=== PATIENT | male | born 1935 | race Caucasian/White ===

== ENCOUNTER 2017-02-20 10:08 | Outpatient (CLI) | payer MEDICARE, OTHER | END 2017-02-20 10:09 | disposition critical access hospital (66) | LOC: EMS 10:08 | PROVIDERS: ATTEND Surgery | DX: M79.601 Pain in right arm (principal); W31.89XA Contact with other specified machinery, initial encounter; Y92.007 Garden or yard of unspecified non-institutional (private) residence as the place of occurrence of the external cause | CPT/HCPCS: A0425; A0429 ==

== ENCOUNTER 2017-02-20 10:45 | Emergency (ER) | payer MEDICARE, OTHER ==
[2017-02-20] MEDS ORDERED: DEXAMETHASONE 10 MG/ML VIAL PO STA (13:30)
[2017-02-20] MEDS ORDERED: DEXAMETHASONE 10 MG/ML VIAL ONE (13:33)
[2017-02-20] MEDS ORDERED: CHERRY SYRUP 10 ML UDC PO ONE (13:33)
== END 2017-02-20 13:53 | disposition home or self-care (01) ==
DX: S47.1XXA Crushing injury of right shoulder and upper arm, initial encounter (principal); R20.2 Paresthesia of skin; W23.0XXA Caught, crushed, jammed, or pinched between moving objects, initial encounter; Y93.H9 Activity, other involving exterior property and land maintenance, building and construction; Y92.007 Garden or yard of unspecified non-institutional (private) residence as the place of occurrence of the external cause; I48.91 Unspecified atrial fibrillation; Z79.82 Long term (current) use of aspirin; Z79.899 Other long term (current) drug therapy
CPT/HCPCS: 73060; 99283; 99284; A9270

== ENCOUNTER 2021-01-05 02:07 | Day surgery (SDC) | payer MEDICARE, OTHER ==
--- NOTE | 2021-01-05 02:25 | ED Physician Documentation ---
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 patient was in bed asleep when he turned and fell out of bed, striking his draw on his bedside table. He immediately had severe jaw pain N perceived deformity of his teeth (sudden severe misalignment). He thinks one or more teeth might be missing although he did not see any loose teeth Review of Systems Eyes: reports: Reviewed and negative Ears: denies: Loss of hearing, Ear pain, Drainage/discharge Nose: denies: Epistaxis Throat: reports: Dental pain / toothache Neurologic: reports: Difficulty speaking, Head injury. denies: Focal weakness, Numbness, Confused, Altered mental status, Headache, LOC PD PAST MEDICAL HISTORY - Past Medical History Past Medical History: Yes Cardiovascular: Atrial fibrillation - Past Surgical History Ortho: Knee replacement - Present Medications Home Medications: Ambulatory Orders Medication Instructions Recorded Confirmed Escitalopram Oxalate [Lexapro] 5 mg PO DAILY 01/05/21 01/05/21 Metoprolol Tartrate [Lopressor] 50 mg PO DAILY 01/05/21 01/05/21 Tamsulosin [Flomax] 0.4 mg PO DAILY 01/05/21 01/05/21 - Allergies Allergies/Adverse Reactions: Allergies Allergy/AdvReac Type Severity Reaction Status Date / Time No Known Drug Allergies Allergy Verified 02/20/17 10:56 - Social History Does the pt smoke?: No Smoking Status: Never smoker Does the pt drink ETOH?: Yes Does the pt have substance abuse?: No - Immunizations Immunizations are current?: Yes PD ED PE NORMAL - Vitals Vital signs reviewed: Yes - General General: Alert and oriented X 3, No acute distress, Well developed/nourished - HEENT HEENT: PERRL, EOMI - Neck Neck: Supple, no meningeal sign, No bony TTP - Cardiac Cardiac: RRR (occasional extra beats but underlying regular rhythm ) - Respiratory Respiratory: No respiratory distress, Clear bilaterally - Abdomen Abdomen: Soft, Non tender PD ED PE EXPANDED - HEENT HEENT: Other (swelling of mandible (visible on gross inspection, R body > left). palpable crepitus. obvious bony step-off noted intraorally between left 1st and 2nd mandibular premolars) Results - Vitals Vitals: Vital Signs - 24 hr 01/05/21 01/05/21 01/05/21 02:11 02:19 04:46 Temperature 36.1 C L 36.1 C L 36.3 C L Heart Rate 61 61 59 L Heart Rate [ Radial] Respiratory 22 22 12 Rate Blood Pressure 181/80 H 181/80 H 145/73 H Blood Pressure [Right Brachial artery] O2 Saturation 97 97 94 01/05/21 01/05/21 01/05/21 06:00 06:40 07:52 Temperature 36.6 C 36.4 C L Heart Rate Heart Rate [ 62 67 Radial] Respiratory 20 18 Rate Blood Pressure Blood Pressure 173/75 H 158/63 H 170/71 H [Right Brachial artery] O2 Saturation 97 95 01/05/21 01/05/21 09:06 11:40 Temperature 36.4 C L Heart Rate Heart Rate [ 66 Radial] Respiratory 18 Rate Blood Pressure 167/71 H Blood Pressure 133/70 H [Right Brachial artery] O2 Saturation 93 Oxygen O2 Source Room air - Labs Labs: Laboratory Tests 01/05/21 01/05/21 01/05/21 03:40 03:40 03:40 WBC 7.3 RBC 4.57 L Hgb 14.4 Hct 42.0 MCV 91.9 MCH 31.5 H MCHC 34.3 RDW 13.2 Plt Count 101 L MPV 10.0 Neut # (Auto) 6.1 Lymph # (Auto) 0.8 L Kimble # (Auto) 0.3 Eos # (Auto) 0.0 Baso # (Auto) 0.0 Absolute Nucleated RBC 0.00 Nucleated RBC % 0.0 PT 12.3 INR 1.1 Sodium 134 L Potassium 3.9 Chloride 103 Carbon Dioxide 23 Anion Gap 8.0 BUN 23 H Creatinine 0.7 Estimated GFR (MDRD) 107 Glucose 228 H Calcium 8.6 Troponin I High Sens Nasal Adenovirus (PCR) Nasal B. parapertussis DNA (PCR) Nasal Coronavir 229E PCR Nasal Coronavir HKU1 PCR Nasal Coronavir NL63 PCR Nasal Coronavir OC43 PCR Nasal Enterovir/Rhinovir PCR Nasal Influenza B PCR Nasal Influenza A PCR Nasal Parainfluen 1 PCR Nasal Parainfluen 2 PCR Nasal Parainfluen 3 PCR Nasal Parainfluen 4 PCR Nasal RSV (PCR) Nasal B.pertussis DNA PCR Nasal C.pneumoniae (PCR) [place] Human Metapneumo PCR Nasal M.pneumoniae (PCR) Nasal SARS-CoV-2 (PCR) 01/05/21 01/05/21 05:36 07:26 WBC RBC Hgb Hct MCV MCH MCHC RDW Plt Count MPV Neut # (Auto) Lymph # (Auto) Kimble # (Auto) Eos # (Auto) Baso # (Auto) Absolute Nucleated RBC Nucleated RBC % PT INR Sodium Potassium Chloride Carbon Dioxide Anion Gap BUN Creatinine Estimated GFR (MDRD) Glucose Calcium Troponin I High Sens 7.4 Nasal Adenovirus (PCR) NOT DETECTED Nasal B. parapertussis DNA (PCR) NOT DETECTED Nasal Coronavir 229E PCR NOT DETECTED Nasal Coronavir HKU1 PCR NOT DETECTED Nasal Coronavir NL63 PCR NOT DETECTED Nasal Coronavir OC43 PCR NOT DETECTED Nasal Enterovir/Rhinovir PCR NOT DETECTED Nasal Influenza B PCR NOT DETECTED Nasal Influenza A PCR NOT DETECTED Nasal Parainfluen 1 PCR NOT DETECTED Nasal Parainfluen 2 PCR NOT DETECTED Nasal Parainfluen 3 PCR NOT DETECTED Nasal Parainfluen 4 PCR NOT DETECTED Nasal RSV (PCR) NOT DETECTED Nasal B.pertussis DNA PCR NOT DETECTED Nasal C.pneumoniae (PCR) NOT DETECTED Ju[place]ino Human Metapneumo PCR NOT DETECTED Nasal M.pneumoniae (PCR) NOT DETECTED Nasal SARS-CoV-2 (PCR) NOT DETECTED - Rads (name of study) CT maxillofacial Radiology: Prelim report reviewed, See rad report PD MEDICAL DECISION MAKING - ED course Complexity details: reviewed results, re-evaluated patient, considered differential, d/w patient ED course: D/W Dr. Tera Quarles, he will come in to evaluate patient, asks for hospitalist consult. I D/W Dr. Greco, who requests clarification if Dr. Quarles wants hospitalist as consult or to admit. I asked ED CLERK GENERAL to recontact Dr. Quarles and have call transferred to Dr. Greco. Dr. Quarles evaluated patient in ED and will write admission orders for same day surgery Departure - Departure Disposition: ED Transfer to [facility] Clinical Impression: Mandible fracture Qualifiers: Encounter type: initial encounter Fracture type: open Mandible location: ramus Laterality: right Qualified Code(s): S02.641B - Fracture of ramus of right mandible, initial encounter for open fracture Condition: Stable Discharge Date/Time: 01/05/21 05:45
[2021-01-05] MEDS ORDERED: MORPHINE 2 MG/ML CARPUJECT IVP STA ×2 (02:39→03:40)
[2021-01-05] MEDS ORDERED: ONDANSETRON 4 MG/2 ML VIAL IVP STA (02:39)
[2021-01-05] MEDS ORDERED: ceFAZolin 1 GM in SODIUM CHLORIDE 0.9% MINIBAG 100 ML IV STA (03:40)
[2021-01-05] MEDS ORDERED: ceFAZolin 1 GM VIAL ONE (03:44)
[2021-01-05 03:47] LABS: BASOPHILS % (AUTO) 0.3 %; EOSINOPHILS % (AUTO) 0.4 %; HGB - HEMOGLOBIN 14.4 g/dL (14.0-18.0); LYMPHOCYTES # (AUTO) 0.8 10^3/uL (1.5-3.5); LYMPHOCYTES % (AUTO) 11.5 %; MEAN CORPUSCULAR HEMOGLOBIN 31.5 pg (27.0-31.0); MEAN CORPUSCULAR HGB CONC 34.3 g/dL (32.0-36.0); MEAN CORPUSCULAR VOLUME 91.9 fL (80.0-94.0); MONOCYTES # (AUTO) 0.3 10^3/uL (0.0-1.0); MONOCYTES % (AUTO) 4.1 %; NEUTROPHILS # (AUTO) 6.1 10^3/uL (1.5-6.6); NEUTROPHILS % (AUTO) 83.4 %; PLT - PLATELET COUNT 101 10^3/uL (130-450); RED BLOOD COUNT 4.57 10^6/uL (4.70-6.10); RED CELL DISTRIBUTION WIDTH 13.2 % (12.0-15.0); WHITE BLOOD COUNT 7.3 x10^3/uL (4.8-10.8)
[2021-01-05 03:55] LABS: CALCIUM 8.6 mg/dL (8.5-10.3); CREATININE 0.7 mg/dL (0.6-1.2); POTASSIUM 3.9 mmol/L (3.5-5.0)
[2021-01-05] MEDS ORDERED: oxyCODONE 10 MG/0.5 ML SYRINGE PO PRN (04:59)
--- NOTE | 2021-01-05 05:13 | HISTORY & PHYSICAL EXAMINATION ---
Chief Complaint - Chief Complaint Chief Complaint: Face pain History of Present Illness - Admitted From Admitted From:: ER - History Obtained From History obtained from: Patient - History of Present Illness HPI Comment/Other: At about 1 am this morning Mr. Power accidentally rolled out of bed and struck his face on the nightstand. He remembers the incident clearly. He immediately felt pain in his jaw and noticed a malocclusion. He did not have pain in his hands, head, eyes, chest, abdomen, or extremities after the incident. He was brought to the ER where a CT max/face demonstrated bilateral mandible fractures. OMFS was consulted for evaluation and management of these fractures. History - Past Medical History Cardiovascular: reports: Atrial fibrillation MRSA Hx?: No - Past Surgical History Ortho: reports: Knee replacement Meds/Allgy - Home Medications Home Medications: Ambulatory Orders Medication Instructions Recorded Confirmed Escitalopram Oxalate [Lexapro] 5 mg PO DAILY 01/05/21 01/05/21 Metoprolol Tartrate [Lopressor] 50 mg PO DAILY 01/05/21 01/05/21 Tamsulosin [Flomax] 0.4 mg PO DAILY 01/05/21 01/05/21 - Allergies Allergies/Adverse Reactions: Allergies Allergy/AdvReac Type Severity Reaction Status Date / Time No Known Drug Allergies Allergy Verified 02/20/17 10:56 Review of Systems - Constitutional Constitutional: denies: Fever, Weakness - Eyes Eyes: denies: Pain, Blurred vision, Spots in vision, Vision loss, Dipolpia - Ears, Nose & Throat Ears, Nose & Throat: reports: Other (Mouth pain, malocclusion). denies: Ear pain, Hearing loss, Nasal pain, Nasal discharge - Cardiovascular Cariovascular: reports: Irregular heart rate. denies: Chest pain, Edema, Syncope - Respiratory Respiratory: denies: Cough, Wheezing, Snoring - Gastrointestinal Gastrointestinal: denies: Abdominal pain, Diarrhea - Musculoskeletal Musculoskeletal: denies: Muscle pain, Back pain - Integumentary Integumentary: reports: Other (Denies any wounds elsewhere on his body) - Neurological Neurological: denies: Headache, Dizziness - Hematologic/Lymphatic Hematologic/Lymphatic: denies: Bleeding tendencies - All Other Systems All Other Systems: reports: Reviewed and negative Exam - Vital Signs Vital Signs: Vital Signs x48h Temp Pulse Resp BP Pulse Ox 01/05/21 04:46 36.3 C L 59 L 12 145/73 H 94 01/05/21 02:19 36.1 C L 61 22 181/80 H 97 01/05/21 02:11 36.1 C L 61 22 181/80 H 97 - Physical Exam General Appearance: positive: No acute distress, Alert (Sleeping comfortably before I woke him) Eyes Bilateral: positive: PERRL, EOMI ENT: positive: Other (Gross malocclusion. Mobility of B md fractures. No missing or chipped teeth visible. No debris in mouth. Marked ecchymosis intraoral. No hematoma or elevation of tongue. Airway symmetric and widely patent. Sleeping supine w/out stridor. Large step between teeth #20,21.) Neck: positive: Nml inspection Respiratory: positive: Chest non-tender, No respiratory distress Cardiovascular: positive: Regular rate & rhythm Peripheral Pulses: positive: 2+ Abdomen: positive: Non-tender, No distention Skin: positive: Color nml, Warm, Dry Extremities: positive: Non-tender, Full ROM Neurologic/Psychiatric: positive: Oriented x3, CN's nml (2-12) (With bilateral V3 anesthesia) Conclusion/Plan - Problem List (1) Mandible open fracture Qualifiers: Encounter type: initial encounter Mandible location: body Laterality: left Qualified Code(s): S02.602B - Fracture of unspecified part of body of left mandible, initial encounter for open fracture (2) Mandible fracture Conclusion/Plan: 85 yo M w/ the following maxillofacial injuries: 1. Displaced, open fracture of the right mandibular angle. 2. Displaced, open fracture of the L mandibular body, between teeth #20,21 Plan: ORIF of the bilateral mandible fractures in the [facility] this evening. Scheduling pending. - NPO - Unasyn 3g q6h - chlorhexidine mouthrinse BID - elevate HOB - allen hose and SCDs Qualifiers: Encounter type: initial encounter Fracture type: open Mandible location: ramus Laterality: right Qualified Code(s): S02.641B - Fracture of ramus of right mandible, initial encounter for open fracture (3) Atrial fibrillation Conclusion/Plan: The patient reports he has an irregular heart beat. He denies chest pain or syncope. IM is consulting for medical management. Appreciate IM assistance. - Lab Results Fish Bones: 01/05/21 03:40 01/05/21 03:40 - Diagnostic Imaging Results Diagnostic Imaging Results: positive: Other (Severely displaced, comminuted fracture of the R mandibular angle. Severely displaced fracture of the L m andibular body between teeth #20,21. No other facial fractures noted. There may be impacted tooth #32 in the L mandibular angle fracture.)
[2021-01-05] MEDS: AMPICILLIN/SULBACTAM 3 GM in SODIUM CHLORIDE 0.9% MINIBAG 100 ML IV SCH ×3 (05:56→18:07)
[2021-01-05] MEDS: D5.45NS W/20 MEQ KCL 1,000 ML IV SCH ×2 (05:57→22:04)
[2021-01-05 06:26] LABS: B. PARAPERTUSSIS- RESP PCR PAN NOT DETECTED; B. PERTUSSIS- RESP PCR PANEL NOT DETECTED; C. PNEUMONIAE- RESP PCR PANEL NOT DETECTED; CORONAVIRUS 229E-RESP PCR NOT DETECTED; CORONAVIRUS HKU1-RESP PCR NOT DETECTED; CORONAVIRUS NL63-RESP PCR NOT DETECTED; CORONAVIRUS OC43-RESP PCR NOT DETECTED; HUMAN METAPNEUMOVIRUS NOT DETECTED; INFLUENZA A- RESP PCR PANEL NOT DETECTED; INFLUENZA B - RESP PCR PANEL NOT DETECTED; M. PNEUMONIAE- RESP PCR PANEL NOT DETECTED; PARAINFLUENZA VIRUS 1 NOT DETECTED; PARAINFLUENZA VIRUS 2 NOT DETECTED; PARAINFLUENZA VIRUS 3 NOT DETECTED; PARAINFLUENZA VIRUS 4 NOT DETECTED; RHINOVIRUS/ENTEROVIRUS NOT DETECTED; RSV- RESP PCR PANEL NOT DETECTED; SARS-CoV-2 -RESP PCR PANEL NOT DETECTED
[2021-01-05] MEDS ORDERED: hydrALAZINE INJ 20 MG/ML VIAL IVP PRN ×2 (07:29→08:27)
[2021-01-05 08:05] LABS: INR 1.1 (0.8-1.2); PT - PROTHROMBIN TIME 12.3 secs (9.9-12.6)
[2021-01-05] MEDS: CHLORHEXIDINE GLUCONATE 15 ML UDC PO SCH ×2 (08:10→21:58)
[2021-01-05] MEDS: TAMSULOSIN 0.4 MG CAPSULE PO SCH (08:11)
[2021-01-05] MEDS: ESCITALOPRAM 10 MG TABLET PO SCH (08:11)
--- NOTE | 2021-01-05 08:59 | CT Report ---
PROCEDURE: MAXILLOFACIAL WO INDICATIONS: fall, mandible and dental injury TECHNIQUE: Noncontrast 1.5 mm thick axial images acquired from the mandible through the frontal sinuses, with co shahzad and sagittal reformatting. For radiation dose reduction, the following was used: automated ex posure control, adjustment of mA and/or kV according to patient size. COMPARISON: None. FINDINGS: The right mandibular body is fractured near the mandibular angle. This fracture is displaced nearly o ne full shaft width, to 1.1 cm. This fracture involves the mandibular nerve canal. The fracture also extends into the root of the right third molar and there appears to be fracture of the tissues [place] also. The left mandibular body is fractured with mild displacement and angulation. This fracture likely inv olves the mandibular nerve canal. There is also extension of the fracture plane into the root of the left mandibular canine. Soft tissue swelling adjacent to both fractures, more pronounced on the left where there is extension into the submandibular space. There is no additional facial fracture identified. Visualized upper cervical spine appears intact. Pa ranasal sinuses and mastoid air cells are clear. IMPRESSION: Bilateral mandibular fractures, with bilateral involvement of the mandibular nerve canals. No significant change from preliminary report. Reviewed by: George Cerna MD on 01/05/2021 8:57 AM PDT Approved by: George Cerna MD on 01/05/2021 8:57 AM PDT Station ID: [id number]
[2021-01-05] MEDS ORDERED: METOPROLOL TARTRATE 50 MG TABLET PO SCH (09:00)
--- NOTE | 2021-01-05 09:26 | CONSULTATION NOTE ---
Referring Provider Name of Referring Provider:: Dr. Quarles Consult Date: 01/05/21 Chief Complaint - Chief Complaint Chief Complaint: fall History of Present Illness - Admitted From Admitted From:: medical floor - History Obtained From Records Reviewed: [facility] History obtained from: Pt Exam Limitations: no - History of Present Illness HPI Comment/Other: This is a [id number] male with a past medical history significant for Heart murmur, hypertension, BPH, who was at medical floor for evaluation of his fall. pt report he accidentally rolled out of bed and struck his face on the nightstand. Clearly pt report he was not loss of Consciousness. he remember clearly what happened. Patient report he has a history heart murmur, as his two family member have heart murmur as well. 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 Patient denies chest pain, palpitation, shortness breathing, fever, chill, headache, eye pain and vision change. CT facial bones found pt had Bilaterally mandibular fractures, with bilaterally involvement of mandibular nerve canals. pt was admitted by surgeon and scheduled to have ORIF of the bilateral mandible fractures on later today or evening. Medical team was consulted for medical management. Pt clearly state he was DNR. History - Past Medical History Cardiovascular: reports: Atrial fibrillation MRSA Hx?: No - Past Surgical History Ortho: reports: Knee replacement Meds/Allgy - Home Medications Home Medications: Ambulatory Orders Medication Instructions Recorded Confirmed Escitalopram Oxalate [Lexapro] 5 mg PO DAILY 01/05/21 01/05/21 Metoprolol Tartrate [Lopressor] 50 mg PO DAILY 01/05/21 01/05/21 Tamsulosin [Flomax] 0.4 mg PO DAILY 01/05/21 01/05/21 - Allergies Allergies/Adverse Reactions: Allergies Allergy/AdvReac Type Severity Reaction Status Date / Time No Known Drug Allergies Allergy Verified 02/20/17 10:56 Review of Systems - Constitutional Constitutional: denies: Fatigue, Fever, Chills, Weakness, Poor appetite, Diaphoresis - Eyes Eyes: denies: Pain, Field loss, Vision loss, Dipolpia - Ears, Nose & Throat Ears, Nose & Throat: denies: Ear pain, Tinnitus, Vertigo, Nosebleeds, Bleeding gums - Cardiovascular Cariovascular: denies: Irregular heart rate, Palpitations, Chest pain, Edema, Lightheadedness, Syncope, Exertional dyspnea, Decr. exercise tolerance - Respiratory Respiratory: denies: Cough, Sputum production, Wheezing, Orthopnea, SOB at rest, SOB with exertion - Gastrointestinal Gastrointestinal: denies: Abdominal pain, Constipation, Diarrhea, Rectal bleeding, Black stools, Bloody stools, Nausea, Vomiting - Genitourinary Genitourinary: denies: Dysuria, Urgency, Incontinence - Musculoskeletal Musculoskeletal: denies: Muscle pain, Muscle aches, Limited range of motion - Integumentary Integumentary: denies: Rash, Lesions, Lumps - Neurological Neurological: denies: General weakness, Focal weakness, Headache, Dizziness, Numbness, Pre-existing deficit, Abnormal gait, Seizures, Incoordination, Slurred speech - Psychiatric Psychiatric: denies: Depression, Suicidal - Endocrine Endocrine: denies: Polyuria, Polydypsia - Hematologic/Lymphatic Hematologic/Lymphatic: denies: Anemia Exam - Vital Signs Vital Signs: Vital Signs x48h Temp Pulse Pulse Resp BP BP Pulse Ox 01/05/21 09:06 167/71 H 01/05/21 07:52 36.4 C L 67 18 170/71 H 95 01/05/21 06:40 158/63 H 01/05/21 06:00 36.6 C 62 20 173/75 H 97 01/05/21 04:46 36.3 C L 59 L 12 145/73 H 94 01/05/21 02:19 36.1 C L 61 22 181/80 H 97 01/05/21 02:11 36.1 C L 61 22 181/80 H 97 - Physical Exam General Appearance: positive: No acute distress, Alert. negative: Lethargic Eyes Bilateral: positive: Normal inspection, PERRL, No lid inflammation ENT: positive: No signs of dehydration. negative: Purulent nasal drainage, Dry mucous membranes Neck: positive: Trachea midline. negative: Thyromegaly, Stiff neck, Tracheal deviation Respiratory: positive: Chest non-tender, No respiratory distress, Breath sounds nml. negative: Wheezes, Rales Cardiovascular: positive: Regular rate & rhythm, Systolic murmur, Diastolic murmur. negative: Tachycardia, Bradycardia Peripheral Pulses: positive: 2+ Abdomen: positive: Non-tender, Nml bowel sounds, No distention. negative: Tenderness Back: positive: Nml inspection Skin: positive: Color nml, Warm, Dry. negative: Cyanosis, Diaphoresis Extremities: positive: Non-tender, Nml appearance. negative: Calf tenderness Neurologic/Psychiatric: positive: Oriented x3, Motor nml, Sensation nml, Mood/affect nml. negative: Weakness, Sensory loss, Facial droop, Slurred/abnml speech, Depressed mood/affect Conclusion/Plan - Plan Plan: 1, Bilaterally mandibular fracture, Patient Is planned to have surgery later today or evening. Follow-up with surgeon, continue pain control, NPO with intravenous IV fluids 2, pro-operation assessment, Patient denies chest pain, palpitation, patient denies loss of consciousness when he had a fall in the home, Patient's troponin is negative, EKG is sinus rhythm except paired VPC. Patient denies history of MD, congestive heart failure, CVA. pt has class I Risk 3.9% 30-day risk of , MD, or cardiac arrest per Dr. Stu Quintanilla's Revised cardiac risk index for preoperative risk. 3, heart murmur Patient had a history of heart murmur, he follow-up with newspaper delivery counselor. Patient denies loss of consciousness in the fall. We will have echo on today before surgery, We will follow up. 4, HTN Patient has a history of hypertension, patient taken metoprolol in the home, we will resume. Add hydralazine for hypertension as needed 5, BPH Patient has a history of BPH, we will resume home Flomax - Lab Results Fish Bones: 01/05/21 03:40 01/05/21 03:40
[2021-01-05] MEDS ORDERED: ACETAMINOPHEN 325 MG TABLET PO PRN (12:00)
--- NOTE | 2021-01-05 14:43 | ANESTHESIA ---
Pre-Anesthesia VS, & Labs - Diagnosis bilateral mandible fracture - Procedure ORIF Bilat Mandible Vital Signs: Temp Pulse Resp BP Pulse Ox 36.4 C L 66 18 133/70 H 93 01/05/21 11:40 01/05/21 11:40 01/05/21 11:40 01/05/21 11:40 01/05/21 11:40 Height: 5 ft 8 in Weight (kg): 81.647 kg Body Mass Index: 27.3 BMI Classification: Overweight - NPO >8 hours - Lab Results Current Lab Results: Laboratory Tests 01/05/21 07:26: Troponin I High Sens 7.4 01/05/21 03:40: PT 12.3, INR 1.1 01/05/21 03:40: Sodium 134 L, Potassium 3.9, Chloride 103, Carbon Dioxide 23, Anion Gap 8.0, BUN 23 H, Creatinine 0.7, Estimated GFR (MDRD) 107, Glucose 228 H , Calcium 8.6 01/05/21 03:40: WBC 7.3, RBC 4.57 L, Hgb 14.4, Hct 42.0, MCV 91.9, MCH 31.5 H, MCHC 34.3, RDW 13.2, Plt Count 101 L, MPV 10.0, Neut # (Auto) 6.1, Lymph # (Auto) 0.8 L, [place] # (Auto) 0.3, Eos # (Auto) 0.0, Baso # (Auto) 0.0, Absolute Nucleated RBC 0.00, Nucleated RBC % 0.0 Lab results reviewed: Yes Fish Bones: 01/05/21 03:40 01/05/21 03:40 Home Medications and Allergies Home Medications: Ambulatory Orders Escitalopram Oxalate [Lexapro] 5 mg PO DAILY 01/05/21 Metoprolol Tartrate [Lopressor] 50 mg PO DAILY 01/05/21 Tamsulosin [Flomax] 0.4 mg PO DAILY 01/05/21 Active Medications Acetaminophen (Acetaminophen 325 Mg Tablet) 650 mg PO Q4HR PRN PRN Reason: Pain or Fever > 38C (100.4F) Last Admin: 01/05/21 12:09 Dose: 650 mg Documented by: Chlorhexidine Gluconate (Chlorhexidine Gluconate 15 Ml Udc) 15 ml PO BID [facility] Last Admin: 01/05/21 08:10 Dose: 15 ml Documented by: Escitalopram Oxalate (Escitalopram 10 Mg Tablet) 5 mg PO DAILY [facility] Last Admin: 01/05/21 08:11 Dose: 5 mg Documented by: Famotidine (Famotidine 20 Mg Tablet) 20 mg PO BID [facility] Hydralazine HCl (Hydralazine Inj 20 Mg/Ml Vial) 10 mg IVP QID PRN PRN Reason: Hypertensive Emergency Potassium Chloride/Dextrose/Sod Cl (D5.45ns W/20 Meq Kcl) 1,000 mls @ 83.333 mls/hr IV .Q12H [facility] Last Infusion: 01/05/21 12:30 Dose: 83.333 mls/hr Documented by: Ampicillin Sodium/Sulbactam (Sodium 3 gm/ Sodium Chloride) 100 mls @ 200 mls/hr IV Q6HR [facility] Last Infusion: 01/05/21 12:30 Dose: Infused Documented by: Metoprolol Tartrate (Metoprolol Tartrate 50 Mg Tablet) 50 mg PO BID [facility] Oxycodone HCl (Oxycodone 10 Mg/0.5 Ml Syringe) 5 mg PO Q4HR PRN PRN Reason: PAIN Tamsulosin HCl (Tamsulosin 0.4 Mg Capsule) 0.4 mg PO DAILY [facility] Last Admin: 01/05/21 08:11 Dose: 0.4 mg Documented by: Escitalopram Oxalate [Lexapro] 5 mg PO DAILY 01/05/21 Metoprolol Tartrate [Lopressor] 50 mg PO DAILY 01/05/21 Tamsulosin [Flomax] 0.4 mg PO DAILY 01/05/21 Allergies/Adverse Reactions: Allergies Allergy/AdvReac Type Severity Reaction Status Date / Time No Known Drug Allergies Allergy Verified 02/20/17 10:56 Anes History & Medical History - Anesthetic History Anesthesia Complications: reports: No previous complications Family history of Anesthesia Complications: Denies Family history of Malignant Hyperthermia: Denies - Medical History Cardiovascular: reports: Atrial fibrillation, Murmur Pulmonary: reports: None Gastrointestinal: reports: None Urinary: reports: None Neuro: reports: None Musculoskeletal: reports: None Endocrine/Autoimmune: reports: None Blood Disorders: reports: None Skin: reports: None Smoking Status: Never smoker Psychosocial: reports: No issues indicated - Surgical History Orthopedic: reports: Knee replacement Results - Echo Results Echo Results: Report reviewed (EF 50-55% Mod Mitral regurg) Exam General: Alert, Oriented x3, Cooperative, No acute distress Dental: Loose/Frag Mouth Openin Fingerbreadth (FB) Respiratory: Lungs clear, Normal breath sounds, No respiratory distress, No accessory muscle use Cardiovascular: Other (murmur) Plan Anesthesia Type: General Consent for Procedure(s) Verified and Reviewed: Yes Code Status: Attempt Resuscitation (discussed with patinet that DNR would be rescinded while in surgery and resumed in Phase 2) ASA classification: 3-Severe systemic disease Is this case an emergency?: No
[2021-01-05] MEDS ORDERED: LIDOCAINE MPF 2%-EPI 1:200000 20 ML VIAL ONE (15:14)
[2021-01-05] MEDS ORDERED: BACITRACIN ZINC OINT 1 PACKET TOP ONE ×2 (15:15→17:04)
[2021-01-05] MEDS ORDERED: BUPIVACAINE 0.25% PF 30 ML VIAL ONE (15:15)
[2021-01-05] MEDS ORDERED: CHLORHEXIDINE GLUCONATE 15 ML UDC PO ONE (15:27)
[2021-01-05] MEDS ORDERED: OXYMETAZOLINE HCL 100 SPRAYS BOTTLE NAS ONE (15:47)
[2021-01-05] MEDS ORDERED: fentaNYL 100 MCG/2 ML VIAL ONE ×2 (16:02→18:18)
[2021-01-05] MEDS ORDERED: PROPOFOL 200 MG/20 ML VIAL IVP ONE (16:03)
[2021-01-05] MEDS ORDERED: ROCURONIUM 50 MG/5 ML VIAL ONE (16:03)
[2021-01-05] MEDS ORDERED: LIDOCAINE-MPF 2% 5 ML VIAL ONE (16:03)
[2021-01-05] MEDS ORDERED: EPINEPHrine 1 MG/ML AMP ONE (16:52)
[2021-01-05] MEDS ORDERED: DEXAMETHASONE 10 MG/ML VIAL ONE (17:39)
[2021-01-05] MEDS ORDERED: LIDOCAINE 2%-EPI 1:100000 20 ML MDV SUBQ ONE (17:45)
[2021-01-05] MEDS ORDERED: VASOPRESSIN 20 UNIT/ML VIAL ONE (18:12)
[2021-01-05] MEDS ORDERED: HYDROmorphone 1 MG/ML CARPUJECT ONE (19:23)
[2021-01-05] MEDS ORDERED: SEVOFLURANE 250 ML LIQUID INH ONE (19:34)
[2021-01-05] MEDS ORDERED: ONDANSETRON 4 MG/2 ML VIAL ONE (20:53)
[2021-01-05] MEDS ORDERED: LACTATED RINGERS 1,000 ML IV ONE (21:08)
[2021-01-05] MEDS ORDERED: HYDROmorphone 0.5 MG/0.5 ML SYRINGE IVP PRN (21:23)
[2021-01-05] MEDS ORDERED: MORPHINE 2 MG/ML CARPUJECT IVP PRN (21:23)
[2021-01-05] MEDS ORDERED: LABETALOL 20 MG/4 ML SYRINGE IVP PRN (21:23)
[2021-01-05] MEDS ORDERED: ACETAMINOPHEN 1,000 MG/100 ML 100 ML IV ONE (21:23)
[2021-01-05] MEDS ORDERED: ONDANSETRON 4 MG/2 ML VIAL IVP PRN (21:23)
[2021-01-05] MEDS ORDERED: fentaNYL 100 MCG/2 ML VIAL IVP PRN (21:23)
[2021-01-05] MEDS ORDERED: NALOXONE 0.4 MG/ML VIAL IVP PRN (21:23)
[2021-01-05] MEDS ORDERED: ATROPINE ABBOJECT 1 MG/10 ML SYRINGE IVP PRN (21:23)
[2021-01-05] MEDS: LORazepam 2 MG/ML VIAL IVP ONE ×2 (21:30→21:59)
--- NOTE | 2021-01-05 21:41 | ANESTHESIA POST OP EVALUATION ---
Anesthesia Post Eval - Post Anesthesia Eval Vitals: Last Vital Signs Temp 36 C L 01/05/21 21:25 Pulse 92 01/05/21 21:25 Resp 16 01/05/21 21:25 BP 145/78 H 01/05/21 21:25 Pulse Ox 94 01/05/21 21:25 CV Function Including HR & BP: Stable Pain Control: Satisfactory Nausea & Vomiting: Negative Mental Status: Other (Patient oriented to person only. Trying to get out of bed. May need a sitter on floor.) Respiratory Status: Airway Patent Hydration Status: Satisfactory Anesthesia Complications: None
[2021-01-05] MEDS: FAMOTIDINE 20 MG TABLET PO SCH (21:58)
[2021-01-05] MEDS: METOPROLOL TARTRATE 50 MG TABLET PO SCH (21:58)
[2021-01-05] MEDS ORDERED: LACTATED RINGERS 1,000 ML IV SCH (22:00)
[2021-01-06] MEDS: AMPICILLIN/SULBACTAM 3 GM in SODIUM CHLORIDE 0.9% MINIBAG 100 ML IV SCH ×3 (00:09→11:30)
[2021-01-06] MEDS ORDERED: LORazepam 2 MG/ML VIAL IVP PRN (00:30)
--- OUTSIDE RECORDS SUMMARY | 2021-01-06 03:19 | EXTERNAL MEDICAL SUMMARY RPT | Continuity of Care Document ---
:1935 Demographics Phone Unavailable Preferred Language Unknown Marital Status Unknown Ep[employer]alian Affiliation Unknown Race Unknown Ethnic Group Unknown Author Organization [facility] Address [address] [id number] Phone Social History date description facility [id number]
--- OUTSIDE RECORDS SUMMARY | 2021-01-06 03:19 | EXTERNAL MEDICAL SUMMARY RPT | Continuity of Care Document ---
:1935 Demographics Phone Unavailable Preferred Language Unknown Marital Status Unknown Congregational Affiliation Unknown Race Unknown Ethnic Group Unknown Author Organization [facility] Address [address] [phone] Phone Social History date description facility [phone]
--- OUTSIDE RECORDS SUMMARY | 2021-01-06 03:19 | EXTERNAL MEDICAL SUMMARY RPT | Continuity of Care Document ---
:1935 Demographics Phone Unavailable Preferred Language Unknown Marital Status Unknown Protestant Affiliation Unknown Race Unknown Ethnic Group Unknown Author Organization [facility] Address [address] [id number] Phone Social History date description facility [phone]
--- NOTE | 2021-01-06 03:56 | OPERATIVE REPORT ---
DATE OF SERVICE: 01/05/2021 Physician: Tera Quarles DDS PREOPERATIVE DIAGNOSES 1. Open severely displaced fracture of the left mandibular body. 2. Open severely displaced fracture, comminuted, of the right mandibular ramus. 3. Fulda tooth number 32 impacted in the line of the fracture. 4. A 1 cm laceration of the right cheek. 5. A 2 cm laceration, intraoral, of the right retromolar trigone secondary to fracture. 6. A 2 cm laceration, intraoral, left mandibular vestibule secondary to mandibular fracture. POSTOPERATIVE DIAGNOSES 1. Open severely displaced fracture of the left mandibular body. 2. Open severely displaced fracture, comminuted, of the right mandibular ramus. 3. Fulda tooth number 32 impacted in the line of the fracture. 4. A 1 cm laceration of the right cheek. 5. A 2 cm laceration, intraoral, of the right retromolar trigone secondary to fracture. 6. A 2 cm laceration, intraoral, left mandibular vestibule secondary to mandibular fracture. PROCEDURE PERFORMED 1. Open reduction and internal fixation of right mandibular angle fracture via intraoral and extraoral approaches. 2. Open reduction and internal fixation of left mandibular body fracture with intraoral and extraoral approaches. 3. Intermaxillary fixation. 4. Simple closure of right cheek laceration, 1 cm. 5. Simple closure of right retromolar trigone laceration. 6. Simple closure of left mandibular vestibule laceration. PRIMARY SURGEON: Tera Quarles DDS AUTO DAMAGE APPRAISER: Cameron. ANESTHESIA TYPE: General anesthesia via nasal endotracheal intubation via the right naris. PROFESSOR OF NURSING: Kimmy Aaron CRNA IMPLANTS: All Biomet implants were placed. Two plates were placed on the right mandibular angle. Two plates were placed in the left mandibular body. A hybrid IMF was placed in the maxilla and mandible. DRAINS, PACKS, AND CATHETERS: None. INDICATIONS FOR PROCEDURE: This is an 85-year-old male who fell bed out of bed and struck his face on a table, sustaining bilateral mandible fractures. Clinical and radiographic examination was consistent with very severe displacement of these fractures. It was decided that these fractures were in need of open reduction and internal fixation with intermaxillary fixation and also closure of the multiple lacerations that he sustained. The risks, benefits and alternatives of this plan were discussed with the patient including pain, swelling, bleeding, infection, damage to nerves, damage to teeth, permanent numbness, permanent paresthesia, permanent facial cosmetic deformity, scarring, malocclusion, nonunion, malunion, hardware failure, need for further surgery. Adequate time was given to answer all questions and informed consent was obtained. DESCRIPTION OF PROCEDURE: The patient was brought to the main operating room and placed in a supine position on the operating table. General anesthesia was induced by the anesthesia team and the airway was secured with a nasal endotracheal tube via the right naris taped to the forehead in the usual fashion. The eyes were protected with Tegaderm. The patient was prepped and draped in the standard sterile fashion for intraoral surgical procedure. All pressure points were padded and checked. A formal timeout was executed. Local anesthesia was achieved with 2% lidocaine with 1:100,000 epinephrine x7 mL. A throat pack was placed. Hybrid arch bars were fixated to the maxilla and then to the mandible using the Biomet arch bar system. The occlusion was hand articulated and found to be the most difficult to reduce over the left mandibular posterior teeth. All access incisions were then made, starting with the one over the right mandibular ramus made in the typical BSSO fashion and coursing anteriorly down through the mandibular vestibule, but stopping short of the mental foramen. Another was made over the left mental foramen area by first making an incision posterior to the mental foramen and an incision anterior to the mental foramen and dissecting above the nerve and then using scissors to carefully cut through the mucosa and then dissect bluntly through the submucosal layers and buccinator muscle, until arriving at the location of the nerve and it from the surrounding tissues and, thus, arriving down to the subperiosteal layer and this produced a nice exposure of the left mandibular body without damaging the nerve. A trocar incision was then made in the right cheek and another trocar incision was made over the left mandibular body with the inferior border plate. We found it necessary to remove tooth number 32 that was impacted in the line of the angle fracture. This was done by using a melissa to trough bone around the tooth and then to begin elevating it delicately. The difficulty came when, during this elevation, the patient's bone was so extremely fragile that with even the smallest amount of elevation the fracture would begin to propagate from the tooth to the surrounding bone. This created a conundrum because it was risky, very risky, to leave this tooth in this place and close the fracture around it; however, we did not want to create any comminution of this bone. The tooth was sectioned into multiple very small pieces and removed carefully without causing any further fracturing of the bone; however, it did create a scenario where the patient's bone was found to be very, very fragile and this created a wary atmosphere for the rest of the case. A portion of the crown of the tooth was believed to be left behind in the distal segment because it could not be removed without severe compromise of that area of bone. The trocar incision was used to place a superior border plate with 4 screws. This was a moderately flexible plate. An inferior border plate, which was rigid, was then placed. The bone reduction was good and the plate stability and screw stability was excellent. Attention was then directed to the left mandibular body. A superior border plate was placed with a 4-hole plate with a gap with 4 screws and then an inferior border plate, which was rigid, with screws and 4 holes on the inferior border plate. However, during placement of one of the screws, it created a new fracture through the inferior border. The screw was removed and a rescue screw was placed, which had slightly better purchase; but because of the easily fracturing nature of his bone, it was decided not to remove this plate and not to attempt a new placement of a plate. This did seem to explain how he could fall out of bed and sustain such a severe fracture. He must have very brittle bone. The surgical sites were then irrigated with copious amounts of sterile saline. The mouth was rinsed free of debris. The lacerations were all closed with 4-0 Vicryl suture and the surgical accesses were closed with 4-0 Vicryl suture as well in interrupted and continuous fashion. The throat pack was removed. The oropharynx was suctioned. The intermaxillary fixation was replaced. There was found to be an open bite on the right. This could probably have been corrected by taking down the angle hardware and replacing it; but because of his delicate nature, it was decided not to do this. Then the skin laceration was closed in the right cheek with Prolene sutures in an interrupted fashion and the trocar incisions were both closed with Prolene sutures in an interrupted fashion. The patient's face was cleansed. The Tegaderm dressings were removed. The care of the patient was returned to the anesthesia team. The patient was extubated uneventfully and emerged uneventfully from anesthesia. He was transferred to the PACU in stable condition. TD: 01/06/2021 03:55 MTDD
[2021-01-06 04:49] LABS: BASOPHILS % (AUTO) 0.1 %; HCT - HEMATOCRIT 42.9 % (42.0-52.0); LYMPHOCYTES # (AUTO) 0.8 10^3/uL (1.5-3.5); LYMPHOCYTES % (AUTO) 6.8 %; MEAN CORPUSCULAR HEMOGLOBIN 30.6 pg (27.0-31.0); MEAN CORPUSCULAR HGB CONC 32.6 g/dL (32.0-36.0); MEAN CORPUSCULAR VOLUME 93.9 fL (80.0-94.0); MEAN PLATELET VOLUME 10.6 fL (7.4-11.4); MONOCYTES # (AUTO) 0.5 10^3/uL (0.0-1.0); MONOCYTES % (AUTO) 4.2 %; NEUTROPHILS % (AUTO) 88.4 %; PLT - PLATELET COUNT 108 10^3/uL (130-450); RED BLOOD COUNT 4.57 10^6/uL (4.70-6.10); RED CELL DISTRIBUTION WIDTH 13.3 % (12.0-15.0); WHITE BLOOD COUNT 11.3 x10^3/uL (4.8-10.8)
[2021-01-06 04:59] LABS: ALBUMIN 3.7 g/dL (3.2-5.5); ALBUMIN/GLOBULIN RATIO 1.3 (1.0-2.2); BILIRUBIN,TOTAL 1.2 mg/dL (0.2-1.0); CALCIUM 8.5 mg/dL (8.5-10.3); CREATININE 0.9 mg/dL (0.6-1.2); POTASSIUM 4.5 mmol/L (3.5-5.0); TOTAL PROTEIN 6.6 g/dL (6.7-8.2)
[2021-01-06] MEDS: TAMSULOSIN 0.4 MG CAPSULE PO SCH (09:30)
[2021-01-06] MEDS: FAMOTIDINE 20 MG TABLET PO SCH (09:31)
[2021-01-06] MEDS: METOPROLOL TARTRATE 50 MG TABLET PO SCH (09:31)
[2021-01-06] MEDS: ESCITALOPRAM 10 MG TABLET PO SCH (09:31)
[2021-01-06] MEDS: CHLORHEXIDINE GLUCONATE 15 ML UDC PO SCH (09:45)
[2021-01-06] MEDS: D5.45NS W/20 MEQ KCL 1,000 ML IV SCH ×2 (09:46→13:50)
--- NOTE | 2021-01-06 14:52 | PROVIDER PROGRESS NOTE ---
Subjective - Prog Note Date Prog Note Date: 01/06/21 - Subjective Pt reports feeling: Improved (Confused overnight, with good clarity today. Tolerating IMF well. Ambulating and voiding without difficulty. Straight cath x 1 earlier, now voiding without cath. Denies pain. Using FWW for ambulation.) Objective - Vital Signs/Intake & Output Reviewed Vital Signs: Yes Vital Signs: Vital Signs x48h Temp Pulse Resp BP BP Pulse Ox 01/06/21 11:12 36.5 C 71 18 138/67 H 95 01/06/21 09:31 119/61 01/06/21 07:28 36.3 C L 98 18 149/75 H 98 Intake & Output: Intake & Output 01/03/21 01/04/21 01/05/21 01/06/21 23:59 23:59 23:59 23:59 Intake Total 4731.963 2560.000 Output Total 1145 Balance 1300.000 749.000 - Objective General Appearance: positive: No acute distress, Alert Eyes Bilateral: positive: PERRL, EOMI ENT: positive: Other (Occlusion stable. IMF tight and intact. Sutures intact, incisions clean. No hematoma. No drainage.) Neck: positive: Other (Extensive ecchymosis, moderate postop edema. Incisions and lacerations c,d,i.) Respiratory: positive: No respiratory distress Cardiovascular: positive: Regular rate & rhythm - Lab Results Fish Bones: 01/06/21 04:30 01/06/21 04:30 Other Labs: Lab Results x24hrs 01/06/21 01/06/21 Range/Units 04:30 04:30 WBC 11.3 H (4.8-10.8) x10^3/uL RBC 4.57 L (4.70-6.10) 10^6/uL Hgb 14.0 (14.0-18.0) g/dL Hct 42.9 (42.0-52.0) % MCV 93.9 (80.0-94.0) fL MCH 30.6 (27.0-31.0) pg MCHC 32.6 (32.0-36.0) g/dL RDW 13.3 (12.0-15.0) % Plt Count 108 L (130-450) 10^3/uL MPV 10.6 (7.4-11.4) fL Neut # (Auto) 10.0 H (1.5-6.6) 10^3/uL Lymph # (Auto) 0.8 L (1.5-3.5) 10^3/uL Wallace # (Auto) 0.5 (0.0-1.0) 10^3/uL Eos # (Auto) 0.0 (0.0-0.7) 10^3/uL Baso # (Auto) 0.0 (0.0-0.1) 10^3/uL Absolute Nucleated RBC 0.00 x10^3/uL Nucleated RBC % 0.0 /100WBC Sodium 135 (135-145) mmol/L Potassium 4.5 (3.5-5.0) mmol/L Chloride 102 (101-111) mmol/L Carbon Dioxide 23 (21-32) mmol/L Anion Gap 10.0 (6-13) BUN 18 (6-20) mg/dL Creatinine 0.9 (0.6-1.2) mg/dL Estimated GFR (MDRD) 80 L (>89) Glucose 300 H (70-100) mg/dL Calcium 8.5 (8.5-10.3) mg/dL Total Bilirubin 1.2 H (0.2-1.0) mg/dL AST 24 (10-42) IU/L ALT 17 (10-60) IU/L Alkaline Phosphatase 63 (42-121) IU/L Total Protein 6.6 L (6.7-8.2) g/dL Albumin 3.7 (3.2-5.5) g/dL Globulin 2.9 (2.1-4.2) g/dL Albumin/Globulin Ratio 1.3 (1.0-2.2) Assessment/Plan - Problem List (1) Mandible open fracture Impression: POD #1 s/p ORIF B fxs w/ IMF and removal of tooth #32. - following a normal postop course Problems: 1. Reports unsteady gait. - requests FWW at home during recovery. 2. Intermaxillary fixation - needs liquid form of home medications or to crush and dissolve his normal meds Plan: OK for d/c to home - liquid augmenting and oxycodone for home - FWW - stop IVF - encouraged good PO intake - home hygiene w/ chlorhexidine mouthrinse - f/u in my clinic on Thursday 01/11 Appreciate IM assistance Please call w/ questions. Tera Quarles, DDS [phone] Qualifiers: Encounter type: initial encounter Mandible location: body Laterality: left Qualified Code(s): S02.602B - Fracture of unspecified part of body of left mandible, initial encounter for open fracture (2) Mandible fracture Qualifiers: Encounter type: initial encounter Fracture type: open Mandible location: ramus Laterality: right Qualified Code(s): S02.641B - Fracture of ramus of right mandible, initial encounter for open fracture
[2021-01-06] MEDS ORDERED: INSULIN ASPART 300 UNIT/3 ML PEN SUBQ ONE (14:58)
[2021-01-06 16:24] VITALS: BP 163/79
[2021-01-06 19:29] LABS: ESTIMATED AVERAGE GLUCOSE 157 mg/dL (70-100); HEMOGLOBIN A1c% 7.1 % (4.27-6.07)
--- NOTE | 2021-01-07 09:22 | PROVIDER PROGRESS NOTE ---
Hospitalist Cross-cover Note - Cross-Cover Note Cross-Cover Note: pt's A1C was 7.1, his glucose is good controlled now, pt already left hospital after he was d/c, pt has advanced age, 85 yrs, as well. At this point, pt may followup with his PCP for further management as needed.
== END 2021-01-06 16:39 | disposition home or self-care (01) ==
LOC: ED 02:07 → SDS 04:41 → MS2 04:41 → SDS 01-06 16:39
PROVIDERS: ATTEND Dentist Oral and Maxillofacial Surgery
PROC: 0NST04Z Reposition Right Mandible with Internal Fixation Device, Open Approach (ICD-10-PCS; 2021-01-05)
PROC: 2W31X9Z Immobilization of Face using Wire (ICD-10-PCS; 2021-01-05)
PROC: 0CDXXZ0 Extraction of Lower Tooth, Single, External Approach (ICD-10-PCS; 2021-01-05)
PROC: 0NSV04Z Reposition Left Mandible with Internal Fixation Device, Open Approach (ICD-10-PCS; principal; 2021-01-05 16:00)
DX: S02.602B Fracture of unspecified part of body of left mandible, initial encounter for open fracture (principal); S02.641B Fracture of ramus of right mandible, initial encounter for open fracture; W06.XXXA Fall from bed, initial encounter; I48.91 Unspecified atrial fibrillation; R01.1 Cardiac murmur, unspecified; I10 Essential (primary) hypertension; N40.0 Benign prostatic hyperplasia without lower urinary tract symptoms; Z66 Do not resuscitate; K01.1 Impacted teeth; Z20.822 Contact with and (suspected) exposure to COVID-19; R26.89 Other abnormalities of gait and mobility
CPT/HCPCS: 21470; 36415; 41899; 51701; 70486; 80048; 80053; 83036; 84484; 85025; 85610; 87631; 93005; 93306; 96365; 96375; 96376; 99284; 99285; A9270; C1713; J1170; J2060; J3490; J7120; 0202U

== ENCOUNTER 2021-02-27 19:16 | Emergency (ER) | payer MEDICARE, OTHER ==
--- OUTSIDE RECORDS SUMMARY | 2021-02-27 19:19 | EXTERNAL MEDICAL SUMMARY RPT | Continuity of Care Document ---
:1935 Demographics Phone Unavailable Preferred Language Unknown Marital Status Unknown Spiritism Affiliation Unknown Race Unknown Ethnic Group Unknown Author Organization [facility] Address [address] [phone] Phone Allergies Encounters Medications Problems Results
[2021-02-27 20:42] LABS: BILIRUBIN,URINE NEGATIVE (NEGATIVE); GLUCOSE, URINE (UA) NEGATIVE (NEGATIVE); KETONES,URINE (UA) NEGATIVE (NEGATIVE); LEUKOCYTE ESTERASE, URINE NEGATIVE (NEGATIVE); NITRITE,URINE NEGATIVE (NEGATIVE); OCCULT BLOOD,URINE NEGATIVE (NEGATIVE); PROTEIN,URINE NEGATIVE (NEGATIVE); UROBILINOGEN,URINE 0.2 (NORMAL) E.U./dL (NORMAL)
[2021-02-27 20:44] LABS: CLARITY,URINE CLEAR (CLEAR)
[2021-02-27 20:51] LABS: BASOPHILS % (AUTO) 0.5 %; EOSINOPHILS # (AUTO) 0.1 10^3/uL (0.0-0.7); EOSINOPHILS % (AUTO) 0.9 %; HCT - HEMATOCRIT 43.3 % (42.0-52.0); HGB - HEMOGLOBIN 14.5 g/dL (14.0-18.0); LYMPHOCYTES # (AUTO) 1.2 10^3/uL (1.5-3.5); LYMPHOCYTES % (AUTO) 19.2 %; MEAN CORPUSCULAR HEMOGLOBIN 31.3 pg (27.0-31.0); MEAN CORPUSCULAR HGB CONC 33.5 g/dL (32.0-36.0); MEAN CORPUSCULAR VOLUME 93.3 fL (80.0-94.0); MEAN PLATELET VOLUME 9.9 fL (7.4-11.4); MONOCYTES # (AUTO) 0.5 10^3/uL (0.0-1.0); MONOCYTES % (AUTO) 7.3 %; NEUTROPHILS # (AUTO) 4.7 10^3/uL (1.5-6.6); NEUTROPHILS % (AUTO) 71.8 %; PLT - PLATELET COUNT 125 10^3/uL (130-450); RED BLOOD COUNT 4.64 10^6/uL (4.70-6.10); RED CELL DISTRIBUTION WIDTH 13.7 % (12.0-15.0); WHITE BLOOD COUNT 6.5 x10^3/uL (4.8-10.8)
--- OUTSIDE RECORDS SUMMARY | 2021-02-27 20:53 | EXTERNAL MEDICAL SUMMARY RPT | Continuity of Care Document ---
:1935 Demographics Phone Unavailable Preferred Language Unknown Marital Status Unknown Quaker Affiliation Unknown Race Unknown Ethnic Group Unknown Author Organization [facility] Address [address] [phone] Phone Allergies Encounters Medications Problems Results
--- NOTE | 2021-02-27 20:56 | ED Physician Documentation ---
History of Present Illness - Stated complaint Stated Complaint: UNSTEADY WALKING - Chief complaint Chief Complaint: Neuro - History obtained from History obtained from: Patient, Family - History of Present Illness Timing: Today Pain level max: 0 Pain level now: 0 - Additonal information Additional information: Patient is an 85-year-old male who states that this morning he had a 2 to 3-hour episode where he felt "off balance". Worse with standing up. Nothing made it better. The room was not spinning. Patient states he did not feel near syncopal. No chest pain. No shortness of breath. He states he feels normal now. No difficulty with speech. No focal neurological deficits. No slurring of his words. Patient states that about 2 months ago he had a ground-level fall in which she suffered mandibular fractures. These were repaired. He states that he has not fallen since that time. Review of Systems Ten Systems: 10 systems reviewed and negative Constitutional: denies: Fever, Chills Cardiac: denies: Chest pain / pressure Respiratory: denies: Cough GI: denies: Vomiting, Diarrhea Skin: denies: Rash Musculoskeletal: denies: Neck pain, Back pain Neurologic: denies: Focal weakness, Numbness, Seizure, Confused, Headache, LOC PD PAST MEDICAL HISTORY - Past Medical History Past Medical History: Yes Cardiovascular: Atrial fibrillation Respiratory: None Neuro: None Endocrine/Autoimmune: None GI: None : None Musculoskeletal: None Derm: None - Past Surgical History Ortho: Knee replacement - Present Medications Home Medications: Ambulatory Orders Medication Instructions Recorded Confirmed Escitalopram Oxalate [Lexapro] 5 mg PO DAILY 01/05/21 01/05/21 Metoprolol Tartrate [Lopressor] 50 mg PO DAILY 01/05/21 01/05/21 Tamsulosin [Flomax] 0.4 mg PO DAILY 01/05/21 01/05/21 - Allergies Allergies/Adverse Reactions: Allergies Allergy/AdvReac Type Severity Reaction Status Date / Time No Known Drug Allergies Allergy Verified 02/20/17 10:56 - Social History Does the pt smoke?: No Smoking Status: Never smoker Does the pt drink ETOH?: Yes Does the pt have substance abuse?: No - Immunizations Immunizations are current?: Yes PD ED PE NORMAL - Vitals Vital signs reviewed: Yes - General General: Alert and oriented X 3, No acute distress, Well developed/nourished - HEENT HEENT: Atraumatic, PERRL, EOMI, Ears normal, Moist mucous membranes - Neck Neck: Supple, no meningeal sign - Cardiac Cardiac: RRR, Strong equal pulses - Respiratory Respiratory: No respiratory distress, Clear bilaterally - Abdomen Abdomen: Soft, Non tender, Non distended - Back Back: No spinal TTP - Derm Derm: Warm and dry - Extremities Extremities: No edema, No calf tenderness / cord - Neuro Neuro: Alert and oriented X 3, paper machine back tender 2-12 intact, No motor deficit, No sensory deficit, Normal speech Eye Opening: Spontaneous Motor: Obeys Commands Verbal: Oriented GCS Score: 15 - Psych Psych: Normal mood, Normal affect Results - Vitals Vitals: Vital Signs - 24 hr 02/27/21 02/27/21 19:43 21:48 Temperature 36.9 C Heart Rate 81 88 Respiratory 16 20 Rate Blood Pressure 141/78 H 156/91 H O2 Saturation 95 97 Oxygen O2 Source Room air - Labs Labs: Laboratory Tests 02/27/21 02/27/21 02/27/21 20:18 20:45 20:45 WBC 6.5 RBC 4.64 L Hgb 14.5 Hct 43.3 MCV 93.3 MCH 31.3 H MCHC 33.5 RDW 13.7 Plt Count 125 L MPV 9.9 Neut # (Auto) 4.7 Lymph # (Auto) 1.2 L Thayer # (Auto) 0.5 Eos # (Auto) 0.1 Baso # (Auto) 0.0 Absolute Nucleated RBC 0.00 Nucleated RBC % 0.0 Sodium 133 L Potassium 3.9 Chloride 100 L Carbon Dioxide 24 Anion Gap 9.0 BUN 13 Creatinine 0.6 Estimated GFR (MDRD) 128 Glucose 141 H Calcium 9.0 Total Bilirubin 1.2 H AST 24 ALT 21 Alkaline Phosphatase 79 Troponin I High Sens Total Protein 7.0 Albumin 4.1 Globulin 2.9 Albumin/Globulin Ratio 1.4 Lipase 23 Urine Color YELLOW Urine Clarity CLEAR Urine pH 6.0 Ur Specific Buena 1.010 Urine Protein NEGATIVE Urine Glucose (UA) NEGATIVE Urine Ketones NEGATIVE Urine Occult Blood NEGATIVE Urine Nitrite NEGATIVE Urine Bilirubin NEGATIVE Urine Urobilinogen 0.2 (NORMAL) Ur Leukocyte Esterase NEGATIVE Ur Microscopic Review NOT INDICATED Urine Culture Comments NOT INDICATED 02/27/21 20:45 WBC RBC Hgb Hct MCV MCH MCHC RDW Plt Count MPV Neut # (Auto) Lymph # (Auto) Thayer # (Auto) Eos # (Auto) Baso # (Auto) Absolute Nucleated RBC Nucleated RBC % Sodium Potassium Chloride Carbon Dioxide Anion Gap BUN Creatinine Estimated GFR (MDRD) Glucose Calcium Total Bilirubin AST ALT Alkaline Phosphatase Troponin I High Sens 10.8 Total Protein Albumin Globulin Albumin/Globulin Ratio Lipase Urine Color Urine Clarity Urine pH Ur Specific Buena Urine Protein Urine Glucose (UA) Urine Ketones Urine Occult Blood Urine Nitrite Urine Bilirubin Urine Urobilinogen Ur Leukocyte Esterase Ur Microscopic Review Urine Culture Comments - Rads (name of study) head Ct Radiology: Prelim report reviewed, EMP read contemporaneously, See rad report PD MEDICAL DECISION MAKING - ED course Complexity details: reviewed results, re-evaluated patient, considered differential, d/w patient, d/w commercial solar sales consultant ED course: Patient is an 85-year-old male who did sustain a fall about a month and a half ago. Came in today for dizziness and feeling off balance earlier today. Head CT reveals a large right-sided subacute subdural hematoma. There is approximately 9 mm of right to left midline shift. He is GCS 15. Neurologically intact. Not on blood thinners. Discussed the case with [facility], ED, Dr. Berrios, who graciously accepts in transfer. Patient will be airlifted to [facility]. COBRA forms completed. This document was made in part using voice recognition software. While efforts are made to proofread this document, sound alike and grammatical errors may occur. FINDINGS: Image quality: Excellent. CSF spaces: Basal cisterns are patent. No extra-axial fluid collections. Ventricles are normal in size and shape. Brain: There is a large subacute right mlyggfs-iiyitxqd-argbvyrm subdural hematoma that measures up to 2.8 cm in thickness. The right-sided subdural hematoma is causing mass effect on adjacent brain parenchyma and proximal main 9 mm of qfkxt-ju-nlpf midline shift. [place]-white matter interface is normal. There is diffuse cerebral volume loss. There are mild periventricular and subcortical white matter chronic microvascular ischemic changes. After static calcifications noted in the internal carotid arteries. Skull and face: Calvarium and visualized facial bones are intact, without suspicious lesions. Sinuses: Visualized sinuses and mastoids are clear. IMPRESSION 1. Large right-sided subacute subdural hematoma. 2. Approximately 9 mm of qrsgh-io-gskv subfalcine herniation. Findings telephoned to Dr. Denton on 02/27/2021 at 2123 hours. Reviewed by: No Domínguez MD, PhD on 02/27/2021 9:24 PM PDT Approved by: No Domínguez MD, PhD on 02/27/2021 9:24 PM PDT Station ID: [id number] Head Of Marketing Analytics: [email or web address] Reading Radiologist: No Domínguez MD Releasing Radiologist: No Domínguez MD Released Date Time: 02/27/212123 Departure - Departure Disposition: 02 Transfer Acute Care Hosp Clinical Impression: Subdural hemorrhage, Midline shift of brain Condition: Stable
[2021-02-27 21:04] LABS: ALBUMIN 4.1 g/dL (3.2-5.5); ALBUMIN/GLOBULIN RATIO 1.4 (1.0-2.2); BILIRUBIN,TOTAL 1.2 mg/dL (0.2-1.0); CREATININE 0.6 mg/dL (0.6-1.2); POTASSIUM 3.9 mmol/L (3.5-5.0)
--- NOTE | 2021-02-27 21:26 | CT Report ---
PROCEDURE: HEAD WO INDICATIONS: off balance. weak TECHNIQUE: Noncontrast 4.5 mm thick angled axial sections acquired from the foramen magnum to the vertex. For r adiation dose reduction, the following was used: automated exposure control, adjustment of mA and/or kV according to patient size. COMPARISON: None. FINDINGS: Image quality: Excellent. CSF spaces: Basal cisterns are patent. No extra-axial fluid collections. Ventricles are normal in size and shape. Brain: There is a large subacute right fiuylnd-coyuhmyh-sqmgqhsn subdural hematoma that measures up t o 2.8 cm in thickness. The right-sided subdural hematoma is causing mass effect on adjacent brain par enchyma and proximal main 9 mm of vrujk-gt-nfed midline shift. [place]-white matter interface is normal. There is diffuse cerebral volume loss. There are mild periventricular and subcortical white matter c hronic microvascular ischemic changes. After static calcifications noted in the internal carotid esa lo. Skull and face: Calvarium and visualized facial bones are intact, without suspicious lesions. Sinuses: Visualized sinuses and mastoids are clear. IMPRESSION 1. Large right-sided subacute subdural hematoma. 2. Approximately 9 mm of esiod-jf-njni subfalcine herniation. Findings telephoned to Dr. Denton on 02/27/2021 at 2123 hours. Reviewed by: No Domínguez MD, PhD on 02/27/2021 9:24 PM PDT Approved by: No Domínguez MD, PhD on 02/27/2021 9:24 PM PDT Station ID: [id number]
[2021-02-27 21:55] VITALS: BP 156/91
[2021-02-27 22:53] LABS: B. PARAPERTUSSIS- RESP PCR PAN NOT DETECTED; B. PERTUSSIS- RESP PCR PANEL NOT DETECTED; C. PNEUMONIAE- RESP PCR PANEL NOT DETECTED; CORONAVIRUS 229E-RESP PCR NOT DETECTED; CORONAVIRUS HKU1-RESP PCR NOT DETECTED; CORONAVIRUS NL63-RESP PCR NOT DETECTED; CORONAVIRUS OC43-RESP PCR NOT DETECTED; HUMAN METAPNEUMOVIRUS NOT DETECTED; INFLUENZA A- RESP PCR PANEL NOT DETECTED; INFLUENZA B - RESP PCR PANEL NOT DETECTED; M. PNEUMONIAE- RESP PCR PANEL NOT DETECTED; PARAINFLUENZA VIRUS 1 NOT DETECTED; PARAINFLUENZA VIRUS 2 NOT DETECTED; PARAINFLUENZA VIRUS 3 NOT DETECTED; PARAINFLUENZA VIRUS 4 NOT DETECTED; RHINOVIRUS/ENTEROVIRUS NOT DETECTED; RSV- RESP PCR PANEL NOT DETECTED; SARS-CoV-2 -RESP PCR PANEL NOT DETECTED
== END 2021-02-27 22:38 | disposition short-term general hospital (02) ==
LOC: ED 19:16
DX: I62.02 Nontraumatic subacute subdural hemorrhage (principal); I48.91 Unspecified atrial fibrillation; Z20.822 Contact with and (suspected) exposure to COVID-19
CPT/HCPCS: 0202U; 36415; 80053; 81001; 81003; 83690; 84484; 85025; 87086; 93005; 99285

== ENCOUNTER 2021-03-08 14:18 | Outpatient (CLI) | payer MEDICARE, OTHER | END 2021-03-08 14:19 | disposition critical access hospital (66) | LOC: EMS 14:18 | DX: R53.1 Weakness (principal); K59.00 Constipation, unspecified; R39.198 Other difficulties with micturition | CPT/HCPCS: A0425; A0429 ==

== ENCOUNTER 2021-03-08 14:58 | Inpatient (IN) | payer MEDICARE, OTHER ==
--- OUTSIDE RECORDS SUMMARY | 2021-03-08 15:10 | EXTERNAL MEDICAL SUMMARY RPT | Continuity of Care Document ---
:1935 Demographics Phone Unavailable Preferred Language Unknown Marital Status Unknown Uatsdin Affiliation Unknown Race Unknown Ethnic Group Unknown Author Organization [facility] Address [address] [place] [address] Phone Allergies Encounters Medications Problems date description facility [id number] Traumatic subdural hemorrhage with loss [facility] of consciousness of unspecified duration, initial encounter [id number] SDH-spontaneous;COVID results pending [facility] [id number] Head Bleed [facility] Results
--- NOTE | 2021-03-08 15:51 | ED Physician Documentation ---
History of Present Illness - Stated complaint Stated Complaint: WEAKNESS/CONSTIPATION - Chief complaint Chief Complaint: General - History obtained from History obtained from: Patient - Additonal information Additional information: 85-year-old gentleman who fell in early December sustaining facial fractures. Subsequently about 10 days ago diagnosed with a subdural hematoma and was transferred to [facility]. He had a craniotomy or bur holes and was sent home. Comes in today because he is generally weak, unsteady, and has not urinated nor has he had a bowel movement in about 5 days. Review of Systems Ten Systems: 10 systems reviewed and negative Constitutional: denies: Fever, Chills Eyes: reports: Reviewed and negative Ears: reports: Reviewed and negative Nose: reports: Reviewed and negative Throat: reports: Reviewed and negative Cardiac: reports: Reviewed and negative Respiratory: reports: Reviewed and negative PD PAST MEDICAL HISTORY - Past Medical History Cardiovascular: Atrial fibrillation Respiratory: None Neuro: None Endocrine/Autoimmune: None GI: None : None Musculoskeletal: None Derm: None - Past Surgical History Past Surgical History: Yes Ortho: Knee replacement - Present Medications Home Medications: Ambulatory Orders Medication Instructions Recorded Confirmed Escitalopram Oxalate [Lexapro] 10 mg PO DAILY 01/05/21 03/08/21 Metoprolol Tartrate [Lopressor] 50 mg PO BID 01/05/21 03/08/21 Tamsulosin [Flomax] 0.4 mg PO DAILY PM 01/05/21 03/08/21 Acetaminophen [Tylenol] 650 mg PO Q4H PRN 03/08/21 03/08/21 Diclofenac Sodium [Voltaren 1 applic TP PRN PRN 03/08/21 03/08/21 Arthritis Pain] Finasteride [Proscar] 5 mg PO DAILY 03/08/21 03/08/21 Hydrocortisone 1% Cream 1 applic TOP QID 03/08/21 03/08/21 [Hydrocortisone] Multivit with Iron,Minerals 1 each PO DAILY 03/08/21 03/08/21 [Complete Senior] Senna [Senokot] 2 tab PO BID PRN 03/08/21 03/08/21 - Allergies Allergies/Adverse Reactions: Allergies Allergy/AdvReac Type Severity Reaction Status Date / Time No Known Drug Allergies Allergy Verified 03/08/21 15:28 - Social History Does the pt smoke?: No Smoking Status: Never smoker Does the pt drink ETOH?: Yes Does the pt have substance abuse?: No - Immunizations Immunizations are current?: Yes PD ED PE NORMAL - Vitals Vital signs reviewed: Yes - General General: Alert and oriented X 3, No acute distress - HEENT HEENT: PERRL, EOMI - Neck Neck: Supple, no meningeal sign, No bony TTP - Cardiac Cardiac: Other (Decrescendo 4 out of 6 systolic murmur heard best at the apex) - Respiratory Respiratory: No respiratory distress, Clear bilaterally - Abdomen Abdomen: Soft, Other (There is a very mildly tender umbilical hernia that was reduced albeit with some difficulty during exam.) - Rectal Rectal: Other (Some firm stool in the vault but not impacted. Evidence of hemorrhoids and probably a recent rectal prolapse but not actively prolapsed.) - Back Back: No CVA TTP, No spinal TTP - Derm Derm: Normal color, Warm and dry - Extremities Extremities: No edema, No calf tenderness / cord - Neuro Neuro: Alert and oriented X 3, No motor deficit, No sensory deficit, Normal speech Results - Vitals Vitals: Vital Signs - 24 hr 03/08/21 03/08/21 03/08/21 15:17 15:38 17:27 Temperature 36.3 C L Heart Rate 87 86 90 Respiratory 16 15 18 Rate Blood Pressure 137/88 H 139/86 H 134/62 H O2 Saturation 96 97 93 Oxygen O2 Source Room air - EKG (time done) 1545 Rate: Rate (enter#) (76) Rhythm: NSR (w pac) [place]: Normal Intervals: Normal [place] QRS: Normal Ischemia: Non specific changes Computer interpretation: Agree with computer - Labs Labs: Laboratory Tests 03/08/21 03/08/21 03/08/21 15:50 15:50 15:50 WBC 12.0 H RBC 4.55 L Hgb 14.4 Hct 42.6 MCV 93.6 MCH 31.6 H MCHC 33.8 RDW 13.5 Plt Count 110 L MPV 11.1 Neut # (Auto) 9.9 H Lymph # (Auto) 0.9 L [place] # (Auto) 1.0 Eos # (Auto) 0.0 Baso # (Auto) 0.0 Absolute Nucleated RBC 0.00 Nucleated RBC % 0.0 PT INR Sodium 136 Potassium 4.6 Chloride 100 L Carbon Dioxide 26 Anion Gap 10.0 BUN 70 H Creatinine 2.4 H Estimated GFR (MDRD) 26 L Glucose 218 H Lactic Acid Calcium 8.9 Magnesium 2.4 Total Bilirubin 1.2 H AST 15 ALT 22 Alkaline Phosphatase 77 Troponin I High Sens 27.9 H* Total Protein 6.8 Albumin 3.4 Globulin 3.4 Albumin/Globulin Ratio 1.0 Lipase 42 Urine Color Urine Clarity Urine pH Ur Specific [place] Urine Protein Urine Glucose (UA) Urine Ketones Urine Occult Blood Urine Nitrite Urine Bilirubin Urine Urobilinogen Ur Leukocyte Esterase Urine RBC Urine WBC Ur Squamous Epith Cells Urine Bacteria Urine Casts Urine Mucus Ur Microscopic Review Urine Culture Comments 03/08/21 03/08/21 03/08/21 16:10 16:28 16:28 WBC RBC Hgb Hct MCV MCH MCHC RDW Plt Count MPV Neut # (Auto) Lymph # (Auto) [place] # (Auto) Eos # (Auto) Baso # (Auto) Absolute Nucleated RBC Nucleated RBC % PT 14.5 H INR 1.3 H Sodium Potassium Chloride Carbon Dioxide Anion Gap BUN Creatinine Estimated GFR (MDRD) Glucose Lactic Acid 1.2 Calcium Magnesium Total Bilirubin AST ALT Alkaline Phosphatase Troponin I High Sens Total Protein Albumin Globulin Albumin/Globulin Ratio Lipase Urine Color YELLOW Urine Clarity CLEAR Urine pH 5.5 Ur Specific Franklin 1.015 Urine Protein NEGATIVE Urine Glucose (UA) NEGATIVE Urine Ketones NEGATIVE Urine Occult Blood LARGE H Urine Nitrite NEGATIVE Urine Bilirubin NEGATIVE Urine Urobilinogen 0.2 (NORMAL) Ur Leukocyte Esterase NEGATIVE Urine RBC 11-25 H Urine WBC 0-3 Ur Squamous Epith Cells FEW Squamous Urine Bacteria Rare Urine Casts 0-2 Hyaline Casts Urine Mucus Few Strands Ur Microscopic Review INDICATED Urine Culture Comments NOT INDICATED PD MEDICAL DECISION MAKING - ED course ED course: Bladder scan was inconclusive, the nurse did an in and out catheter and 1270 mL came out so a Capps was subsequently placed. 85-year-old gentleman with recent surgery for subdural hematoma presents with urinary retention causing pain and subsequently evidence of acute kidney injury related to same. He had a large amount of urine out with placement of Capps catheter. Given the JADIEL probably will need admission. CT of the head reviewed with the radiologist. His staple and suture lines are intact without any evidence of dehiscence or infection. CT of the belly shows a very large pros pearson but no evidence of fecal impaction or other acute emergency. Spoke with Dr. Garcia for observation at 6:09 PM. Departure - Departure Disposition: ED Place in Observation Clinical Impression: JADIEL (acute kidney injury), Urinary retention, Subdural hemorrhage Abdominal pain Qualifiers: Abdominal location: generalized Qualified Code(s): R10.84 - Generalized abdominal pain Condition: Stable
[2021-03-08] MEDS ORDERED: IOVERSOL 320 100 ML VIAL IVP ONE (16:01)
[2021-03-08 16:29] LABS: BILIRUBIN,URINE NEGATIVE (NEGATIVE); CLARITY,URINE CLEAR (CLEAR); GLUCOSE, URINE (UA) NEGATIVE (NEGATIVE); KETONES,URINE (UA) NEGATIVE (NEGATIVE); LEUKOCYTE ESTERASE, URINE NEGATIVE (NEGATIVE); NITRITE,URINE NEGATIVE (NEGATIVE); OCCULT BLOOD,URINE LARGE (NEGATIVE); PH,URINE 5.5 PH (5.0-7.5); PROTEIN,URINE NEGATIVE (NEGATIVE); UROBILINOGEN,URINE 0.2 (NORMAL) E.U./dL (NORMAL)
[2021-03-08 16:36] LABS: WBC,URINE 0-3 /HPF (0-3)
[2021-03-08 16:37] LABS: BASOPHILS % (AUTO) 0.1 %; EOSINOPHILS % (AUTO) 0.3 %; HCT - HEMATOCRIT 42.6 % (42.0-52.0); HGB - HEMOGLOBIN 14.4 g/dL (14.0-18.0); LYMPHOCYTES # (AUTO) 0.9 10^3/uL (1.5-3.5); LYMPHOCYTES % (AUTO) 7.4 %; MEAN CORPUSCULAR HEMOGLOBIN 31.6 pg (27.0-31.0); MEAN CORPUSCULAR HGB CONC 33.8 g/dL (32.0-36.0); MEAN CORPUSCULAR VOLUME 93.6 fL (80.0-94.0); MEAN PLATELET VOLUME 11.1 fL (7.4-11.4); MONOCYTES % (AUTO) 8.1 %; NEUTROPHILS # (AUTO) 9.9 10^3/uL (1.5-6.6); PLT - PLATELET COUNT 110 10^3/uL (130-450); RED BLOOD COUNT 4.55 10^6/uL (4.70-6.10); RED CELL DISTRIBUTION WIDTH 13.5 % (12.0-15.0)
[2021-03-08 16:37] LABS: BACTERIA,URINE Rare /HPF (None Seen); CASTS, URINE 0-2 Hyaline Casts /LPF; MUCUS,URINE Few Strands; SQUAMOUS EPITHELIAL CELL,UR FEW Squamous (<= Few)
[2021-03-08 16:38] LABS: INR 1.3 (0.8-1.2); PT - PROTHROMBIN TIME 14.5 secs (9.9-12.6)
[2021-03-08 16:55] LABS: ALBUMIN 3.4 g/dL (3.2-5.5); BILIRUBIN,TOTAL 1.2 mg/dL (0.2-1.0); CALCIUM 8.9 mg/dL (8.5-10.3); CREATININE 2.4 mg/dL (0.6-1.2); MAGNESIUM 2.4 mg/dL (1.7-2.8); POTASSIUM 4.6 mmol/L (3.5-5.0); TOTAL PROTEIN 6.8 g/dL (6.7-8.2)
[2021-03-08] MEDS ORDERED: SODIUM CHLORIDE 0.9% 1,000 ML IV STA ×2 (17:04)
--- NOTE | 2021-03-08 17:49 | CT Report ---
PROCEDURE: HEAD WO INDICATIONS: weak, recent sdh TECHNIQUE: Noncontrast 4.5 mm thick angled axial sections acquired from the foramen magnum to the vertex. For r adiation dose reduction, the following was used: automated exposure control, adjustment of mA and/or kV according to patient size. COMPARISON: None. FINDINGS: Image quality: Motion artifact is noted. Images were repeated, with some improvement. CSF spaces: Basal cisterns are patent. There is low-density subdural fluid seen on both sides. On th e right-sided pneumocephalus is also seen. The fluid on the right measures approximately 2 cm in thic kness. The fluid on the left measure 1 cm in thickness. Ventricles are normal in size and shape. Brain: There is minimal midline shift seen, approximately 2 mm. No intracranial masses or hemorrhage. [place]-white matter interface is normal. Skull and face: Right-sided melissa holes are seen, with overlying skin dwain. Calvarium and visualiz ed facial bones are intact, without suspicious lesions. Sinuses: Visualized sinuses and mastoids are clear. IMPRESSION: Improved examination compared to the prior, with bilateral chronic appearing subdural hy gromas. Interval right-sided melissa holes can be seen, with associated skin dwain. There is moderate right-sided pneumocephalus seen. Please correlate with the integrity of the overlyi ng soft tissues and with the most recent intracranial procedure. Note: Case discussed by telephone with Dr. Rabago at 4:46 PM [place] time on 03/08/2021. Reviewed by: Ang Holguin MD on 03/08/2021 4:48 PM AKDT Approved by: Ang Holguin MD on 03/08/2021 4:48 PM AKDT Station ID: [id number]
--- NOTE | 2021-03-08 17:53 | CT Report ---
PROCEDURE: Abdomen/Pelvis WO INDICATIONS: abd pain, deep TECHNIQUE: Noncontrast 5 mm thick sections acquired from the diaphragms to the symphysis. 5 mm coronal and sagi ttal reformats were then performed. For radiation dose reduction, the following was used: automated exposure control, adjustment of mA and/or kV according to patient size. COMPARISON: None. FINDINGS: Image quality: Excellent. ABDOMEN: Lung bases: Lung bases are clear. Heart size is normal. At least moderate coronary artery calcific ation is seen. Solid organs: Liver and spleen are normal in size. Gallbladder wall does not appear thickened. P ancreas is normal in contours. No adrenal nodules. Kidneys are normal in size, without nephrolithia sis. The superior pole of the right kidney, there is a water density cyst seen that measures 5.6 cm. Bilateral mild to moderate hydronephrosis is seen. Peritoneum and bowel: Unenhanced bowel loops demonstrate normal wall thickness and caliber. No free fluid or air. Nodes and vessels: No retroperitoneal or mesenteric adenopathy by size criteria. Aorta and inferior vena cava are normal in caliber. Atherosclerotic calcification is seen. Miscellaneous: A moderate fat-containing periumbilical hernia is seen. PELVIS: Genitourinary: A Capps catheter seen, which decompresses the bladder. There is an enlarged prostate seen, which measures 8.3 cm transversely. Miscellaneous: No inguinal adenopathy. There is a fat-containing left inguinal hernia. Bones: No suspicious bony lesions. No vertebral body compression fractures. Mild levoconvex scolio tic curvature is seen. Age-appropriate degenerative changes are seen. IMPRESSION: Mild to moderate bilateral hydronephrosis. No kidney stones or ureteral stones are seen. Incidental note is made of: Simple appearing right renal cyst Moderate fat-containing periumbilical hernia Levoconvex scoliotic curvature Vascular calcification, including at least moderate coronary artery calcification Enlarged prostate Capps catheter Fat-containing left inguinal hernia Reviewed by: Ang Holguin MD on 03/08/2021 4:52 PM AKDT Approved by: Ang Holguin MD on 03/08/2021 4:52 PM AKDT Station ID: [id number]
[2021-03-08] MEDS ORDERED: SODIUM CHLORIDE FLUSH 0.9% 10 ML SYRINGE IVP PRN (18:10)
--- OUTSIDE RECORDS SUMMARY | 2021-03-08 18:54 | EXTERNAL MEDICAL SUMMARY RPT | Continuity of Care Document ---
:1935 Demographics Phone Unavailable Preferred Language Unknown Marital Status Unknown Cheondoism Affiliation Unknown Race Unknown Ethnic Group Unknown Author Organization [facility] Address [address] [place] [address] Phone Allergies Encounters Medications Problems date description facility [id number] Traumatic subdural hemorrhage with loss [facility] of consciousness of unspecified duration, initial encounter [id number] SDH-spontaneous;COVID results pending [facility] [id number] Head Bleed [facility] Results
[2021-03-08 19:18] LABS: B. PARAPERTUSSIS- RESP PCR PAN NOT DETECTED; B. PERTUSSIS- RESP PCR PANEL NOT DETECTED; C. PNEUMONIAE- RESP PCR PANEL NOT DETECTED; CORONAVIRUS 229E-RESP PCR NOT DETECTED; CORONAVIRUS HKU1-RESP PCR NOT DETECTED; CORONAVIRUS NL63-RESP PCR NOT DETECTED; CORONAVIRUS OC43-RESP PCR NOT DETECTED; HUMAN METAPNEUMOVIRUS NOT DETECTED; INFLUENZA A- RESP PCR PANEL NOT DETECTED; INFLUENZA B - RESP PCR PANEL NOT DETECTED; M. PNEUMONIAE- RESP PCR PANEL NOT DETECTED; PARAINFLUENZA VIRUS 1 NOT DETECTED; PARAINFLUENZA VIRUS 2 NOT DETECTED; PARAINFLUENZA VIRUS 3 NOT DETECTED; PARAINFLUENZA VIRUS 4 NOT DETECTED; RHINOVIRUS/ENTEROVIRUS NOT DETECTED; RSV- RESP PCR PANEL NOT DETECTED; SARS-CoV-2 -RESP PCR PANEL NOT DETECTED
[2021-03-08] MEDS: SODIUM CHLORIDE 0.9% 1,000 ML IV SCH (19:18)
[2021-03-08] MEDS ORDERED: SENNA 8.6 MG TABLET PO PRN (20:36)
[2021-03-08] MEDS ORDERED: ACETAMINOPHEN 325 MG TABLET PO PRN (20:36)
--- NOTE | 2021-03-08 20:39 | HISTORY & PHYSICAL EXAMINATION ---
History of Present Illness - Admitted From Admitted From:: ED - History Obtained From History obtained from: ED Provider and chart review - History of Present Illness HPI Comment/Other: This is an 85-year-old white male with a history of hypertension, Mitral valve prolapes, BPH and constipation. In late December of this year he accidentally roolled out of bed, hitting his end table and fractured his face and jaw and needed admission here on the oral-maxillofacial surgery service of Dr. Quarles for surgical repair of his jaw. During that admission, a murmur was documented and an Echo was done that showed low-normal LVEF of 50% and mitral valve prolapse with moderate, eccentric mitral regurgitation. His serum glucose levels were elevated therefore an A1c was done that returned at 7.1. Patient was to have follow-up of newly diagnosed diabetes with his PCP. About 6 weeks later, in late January, he was "not feeling well" and came to the ER and was diagnosed with a subdural hematoma, presumably sustained in the January 2020 fall, and he was transferred from our ER to [facility] and needed surgery with bur holes and recovered. The patient presents to the ER today with complaints of weakness, fatigue, vague abdominal pain and inability to urinate and no bowel movement for 5 days. In the ER work-up showed that he was not impacted, creatinine was 2.4 (is usually 0.6) and CT imaging of the abdomen showed a very large prostate and hydronephrosis. Bladder scan was not accurate so a straight cath was done and he put out 1200+ cc of fluid therefore a Capps was inserted. The patient is being placed in Observation status for continued management of JADIEL with fluids and relief of urinary obstruction with a Capps. At the last admission, the patient voiced request to be a DNR. History - Past Medical History Cardiovascular: reports: Hypertension, Deep vein thrombosis, Atrial fibrillation, Murmur Respiratory: reports: None Neuro: reports: Head injury Endocrine/Autoimmune: reports: Type 2 diabetes (This was just diagnosed with elevated A1c of 7.1 in January 2020. He was to have outpatient management for diabetes but he is still not on a diabetic oral medication.) GI: reports: None : reports: Benign prostate hypertrophy, Incontinence Psych: reports: None Musculoskeletal: reports: None Derm: reports: None MRSA Hx?: No Other Past Medical History: cataracts - Past Surgical History Ortho: reports: Knee replacement Neuro: reports: Craniotomy, Other HEENT: reports: Cataracts Meds/Allgy - Home Medications Home Medications: Ambulatory Orders Medication Instructions Recorded Confirmed Escitalopram Oxalate [Lexapro] 10 mg PO DAILY 01/05/21 03/08/21 Metoprolol Tartrate [Lopressor] 50 mg PO BID 01/05/21 03/08/21 Tamsulosin [Flomax] 0.4 mg PO DAILY PM 01/05/21 03/08/21 Acetaminophen [Tylenol] 650 mg PO Q4H PRN 03/08/21 03/08/21 Diclofenac Sodium [Voltaren 1 applic TP PRN PRN 03/08/21 03/08/21 Arthritis Pain] Finasteride [Proscar] 5 mg PO DAILY 03/08/21 03/08/21 Hydrocortisone 1% Cream 1 applic TOP QID 03/08/21 03/08/21 [Hydrocortisone] Multivit with Iron,Minerals 1 each PO DAILY 03/08/21 03/08/21 [Complete Senior] Senna [Senokot] 2 tab PO BID PRN 03/08/21 03/08/21 - Allergies Allergies/Adverse Reactions: Allergies Allergy/AdvReac Type Severity Reaction Status Date / Time No Known Drug Allergies Allergy Verified 03/08/21 15:28 Review of Systems - Constitutional Constitutional: reports: Fatigue, Weakness - Gastrointestinal Gastrointestinal: reports: Abdominal pain, Constipation - Genitourinary Genitourinary: reports: Incontinence, Other (Difficulty passing urine) - Neurological Neurological: reports: General weakness - All Other Systems All Other Systems: reports: Reviewed and negative Exam - Vital Signs Vital Signs: Vital Signs x48h Temp Pulse Pulse Resp BP BP Pulse Ox 03/08/21 19:15 36.3 C L 73 18 157/64 H 95 03/08/21 19:00 93 15 135/73 H 92 03/08/21 17:27 90 18 134/62 H 93 03/08/21 15:38 86 15 139/86 H 97 03/08/21 15:17 36.3 C L 87 16 137/88 H 96 - Physical Exam General Appearance: positive: Lethargic, Other (Sleeping but awakens) Eyes Bilateral: positive: Normal inspection ENT: positive: ENT inspection nml, No signs of dehydration Neck: positive: Nml inspection, No JVD Respiratory: positive: No respiratory distress, Breath sounds nml Cardiovascular: positive: Regular rate & rhythm, Systolic murmur (3-4/6 holosystolic murmur throughout precordium) Abdomen: positive: Non-tender, Nml bowel sounds Skin: positive: Warm, Dry Extremities: positive: Nml appearance, No pedal edema Neurologic/Psychiatric: positive: Other (Currently sleeping) Conclusion/Plan - Problem List (1) Acute urinary retention Conclusion/Plan: The enlarged bladder and constipation were probably the causes of his vague abdominal pain. The urinary retention has been relieved by placement of a Capps which is draining clear yellow fluid. We will continue and discharge him with the Capps and he needs urology outpatient management soon. He will need Capps teaching before discharge. (2) JADIEL (acute kidney injury) Conclusion/Plan: Relief of obstruction and IV fluids have been started. Will gentle iv fluids, since his LVEF is 50%, not hyperdynamic LVEF, as it should be in a patient with significant mitral regurgitation. Follow his BUN/creatinine daily. Avoid nephrotoxins. (3) Acquired hydronephrosis due to obstruction of bladder Conclusion/Plan: As per CT imaging, he has bilateral hydronephrosis, from obstruction in the lower tract. This is expected to resolve spontaneously since the obstruction has been relieved. (4) Type 2 diabetes mellitus Conclusion/Plan: The patient was seen in consultation by the Hospitalist team during his last admission 6 weeks ago, when he was on the oral maxillofacial surgery service. His serum glucose was high and an A1c then returned at 7.1. The patient had already been discharged by the time the Hospitalist was doing follow-up rounding and the plan was for diabetic management as an outpatient with his PCP. It is unclear if that was done since he was later admitted for a subdural hematoma. He has not been prescribed an oral diabetic medication according to the medica tion list, however the list has not yet been reconciled by Pharmacy. Will add carb-controlled diet to his diet order. We will start to do before meals and at bedtime fingerstick checks and start sliding scale insulin coverage at a low scale. Will recheck the A1c, it was 7.1 6 weeks ago, when he was an inpt here. Metformin is not planned because of his JADIEL. He will need diabetic teaching in addition to Capps teaching before discharge. (5) MVP (mitral valve prolapse) Conclusion/Plan: This was recently diagnosed on the echo done at the admission 6 weeks ago. With the EF of 50%, that is actually lower than expected, when there is moderate mitral regurgitation. 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 (6) Weakness Conclusion/Plan: Possibly this is from his 2 recent hospitalizations and deconditioning or from new uremia. We will order physical therapy and OT to evaluate the pt. (7) HTN (hypertension) Conclusion/Plan: We will continue his home dose of beta-tiffani for blood pressure control. (8) Subdural hemorrhage Conclusion/Plan: As per recent history. The patient had CT head imaging done in the ER today, because of the new complaint of weakness. The CT head showed bur holes and stable findings post- surgery, as per the ED provider. - Lab Results Fish Bones: 03/08/21 15:50 03/08/21 15:50
[2021-03-08] MEDS: HYDROCORTISONE 1% CREAM 28 GM TUBE TOP SCH (21:19)
[2021-03-08] MEDS: METOPROLOL TARTRATE 50 MG TABLET PO SCH (21:20)
[2021-03-08] MEDS: INSULIN ASPART 300 UNIT/3 ML PEN SUBQ SCH (21:21)
[2021-03-09] MEDS: SODIUM CHLORIDE FLUSH 0.9% 10 ML SYRINGE IVP SCH ×3 (00:08→16:37)
[2021-03-09] MEDS: SODIUM CHLORIDE 0.9% 1,000 ML IV SCH ×2 (03:56→16:37)
[2021-03-09 05:33] LABS: BASOPHILS % (AUTO) 0.1 %; EOSINOPHILS # (AUTO) 0.1 10^3/uL (0.0-0.7); EOSINOPHILS % (AUTO) 1.2 %; HCT - HEMATOCRIT 36.3 % (42.0-52.0); HGB - HEMOGLOBIN 11.9 g/dL (14.0-18.0); LYMPHOCYTES # (AUTO) 1.2 10^3/uL (1.5-3.5); LYMPHOCYTES % (AUTO) 12.7 %; MEAN CORPUSCULAR HGB CONC 32.8 g/dL (32.0-36.0); MEAN CORPUSCULAR VOLUME 94.5 fL (80.0-94.0); MEAN PLATELET VOLUME 10.4 fL (7.4-11.4); MONOCYTES # (AUTO) 0.7 10^3/uL (0.0-1.0); MONOCYTES % (AUTO) 7.9 %; NEUTROPHILS % (AUTO) 76.9 %; PLT - PLATELET COUNT 93 10^3/uL (130-450); RED BLOOD COUNT 3.84 10^6/uL (4.70-6.10); RED CELL DISTRIBUTION WIDTH 13.4 % (12.0-15.0); WHITE BLOOD COUNT 9.2 x10^3/uL (4.8-10.8)
[2021-03-09 05:42] LABS: CALCIUM 8.3 mg/dL (8.5-10.3); CREATININE 0.9 mg/dL (0.6-1.2); POTASSIUM 3.9 mmol/L (3.5-5.0)
[2021-03-09] MEDS: INSULIN ASPART 300 UNIT/3 ML PEN SUBQ SCH ×4 (07:44→21:20)
[2021-03-09] MEDS ORDERED: SACCHAROMYCES BOULARDII 250 MG CAPSULE PO SCH (08:54)
[2021-03-09] MEDS: HYDROCORTISONE 1% CREAM 28 GM TUBE TOP SCH ×5 (09:00→21:20)
[2021-03-09] MEDS ORDERED: cephALEXin 250 MG CAPSULE PO SCH (09:00)
[2021-03-09 09:23] LABS: ESTIMATED AVERAGE GLUCOSE 134 mg/dL (70-100); HEMOGLOBIN A1c% 6.3 % (4.27-6.07)
[2021-03-09] MEDS: DOCUSATE SODIUM 250 MG CAPSULE PO SCH (09:25)
[2021-03-09] MEDS: FINASTERIDE 5 MG TABLET PO SCH (09:25)
[2021-03-09] MEDS: TAMSULOSIN 0.4 MG CAPSULE PO SCH (09:26)
[2021-03-09] MEDS: ESCITALOPRAM 10 MG TABLET PO SCH (09:26)
[2021-03-09] MEDS: polyethylene glycoL 3350 17 GM PACKET PO SCH (09:27)
[2021-03-09] MEDS: METOPROLOL TARTRATE 50 MG TABLET PO SCH ×2 (09:27→21:20)
[2021-03-09] MEDS: MULTIVITAMIN TABLET PO SCH (09:27)
--- NOTE | 2021-03-09 09:39 | XRAY Report ---
PROCEDURE: Hand 2 View LT INDICATIONS: pain, swelling TECHNIQUE: 2 views of the hand(s) acquired. COMPARISON: None FINDINGS: Bones: No acute fractures or dislocations. 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 No suspi cious bony lesions. Joint space narrowing and periarticular osteophyte formation at the interphalang eal joints of the digits as well as at the scaphotrapezial and first metacarpal joints.. Soft tissues: No suspicious soft tissue calcifications. IMPRESSION: 1. Osteoarthritis. 2. No acute fracture. No osseous lesion. If symptoms and/or clinical suspicion for pathology continue , further assessment with repeat plain films, or advanced imaging (e.g., CT, MRI, or bone scan) is re commended for further assessment. Reviewed by: Cece Sanz MD on 03/09/2021 9:38 AM PDT Approved by: Cece Sanz MD on 03/09/2021 9:38 AM PDT Station ID: [id number]
--- NOTE | 2021-03-09 14:11 | PROVIDER PROGRESS NOTE ---
Assessment/Plan - Problem List (1) JADIEL (acute kidney injury) Assessment/Plan: pt report he feel better. creatinine is 0.9 from 2.4 at the admission. pt had significantly urinary retention at the admission. pt was found to have over 1000ml urine at bladder. Per CT imaging, he has bilateral hydronephrosis, from obstruction in the lower tract which likely directly affect pt's kidney function. continue gently IVF, continue lab monitor, continue Capps, Avoid nephrotoxins, continue lab monitor and followup with urologist as out-pt (2) Acute urinary retention Conclusion/Plan: The enlarged bladder, and The urinary retention has been relieved by placement of a Capps which is draining clear yellow fluid which was over 1000ml. We will discharge him with the Capps and he needs urology outpatient management soon. pt has Capps care education before discharge. continue home meds Flomax and Proscar (3) unsteady gait pt present significant unsteady gain when he walk and pt need two person assisting. pt was recently Diagnosis with subdural hematoma, And had procedure of craniotomy in . PT/OT Evaluated and treated for patient, Recommended patient to be discharged to SNF. Consult with social work for disposition planning (4) Acquired hydronephrosis due to obstruction of bladder Conclusion/Plan: creatinine is significantly improved to 0.9 from 2.[address] per [address] imaging, he has bilateral hydronephrosis, from obstruction in the lower tract. This is expected to resolve spontaneously since the obstruction has been relieved. (5) Type 2 diabetes mellitus today pt's A1C is 6.3, improved. diabetes education was ordered for pt. at this point, we will hold meds for pt at d/c since his lower A1C, followup with out-pt to continue management as needed. (6) MVP (mitral valve prolapse) stable, continue sees a [facility] in [place] as out-pt setting. This was recently diagnosed on the echo done at the admission 6 weeks ago. With the EF of 50%, that is actually lower than expected, when there is moderate mitral regurgitation. (7) Weakness Possibly this is from his new diagnosis of subdural hematoma, 2 recent hospitalizations, and physical deconditioning, and new uremia. physical therapy and OT evaluated and treat the pt, recommend to SNF. Consult with social work for disposition planning (8) HTN (hypertension) Conclusion/Plan: stable, We will continue his home dose of beta-tiffani for blood pressure control. (9) Subdural hemorrhage Conclusion/Plan: pt was recently Diagnosis with subdural hematoma, And had procedure of craniotomy in . The patient had CT head imaging done in the ER today, because of the new complaint of weakness. The CT head showed bur holes and stable find ings post-surgery, as per the ED provider. hold blood thinner, plan d/c to SNF for prevention of fall and strength training for pt. - Current Meds Current Meds: Current Medications Generic Name Dose Route Start Last Admin Trade Name Freq PRN Reason Stop Dose Admin Docusate Sodium 250 - 500 mg 03/09/21 09:00 03/09/21 09:25 Docusate Sodium 250 Mg Capsule PO 500 mg DAILY [facility] Administration Escitalopram Oxalate 10 mg 03/09/21 09:00 03/09/21 09:26 Escitalopram 10 Mg Tablet PO 10 mg DAILY [facility] Administration Finasteride 5 mg 03/09/21 09:00 03/09/21 09:25 Finasteride 5 Mg Tablet PO 5 mg DAILY [facility] Administration Hydrocortisone 1 applic 03/08/21 21:00 03/09/21 12:16 Hydrocortisone 1% Cream 28 Gm Tube TOP 1 applic QID [facility] Administration Sodium Chloride 1,000 mls @ 100 mls/hr 03/08/21 19:00 03/09/21 13:48 Normal Saline 0.9% IV 03/09/21 14:59 Infused .Q10H [facility] Infusion Insulin Aspart 1 - 5 unit 03/08/21 21:00 03/09/21 12:12 Insulin Aspart 300 Unit/3 Ml Pen SUBQ 1 unit 0800,1200,1700,2100 [facility] Administration Protocol Metoprolol Tartrate 50 mg 03/08/21 21:00 03/09/21 09:27 Metoprolol Tartrate 50 Mg Tablet PO 50 mg BID [facility] Administration Multivitamins 1 tab 03/09/21 09:00 03/09/21 09:27 Multivitamin Tablet PO 1 tab DAILY [facility] Administration Polyethylene Glycol 17 gm 03/09/21 09:00 03/09/21 09:27 Polyethylene Glycol 3350 17 Gm Packet PO 17 gm DAILY [facility] Administration Senna 17.2 mg 03/08/21 20:36 03/09/21 09:25 Senna 8.6 Mg Tablet PO 17.2 mg BID PRN Administration Constipation Sodium Chloride 10 ml 03/09/21 01:00 03/09/21 09:27 Sodium Chloride Flush 0.9% 10 Ml Syringe IVP Not Given 0100,0900,1700 [facility] Tamsulosin HCl 0.4 mg 03/09/21 09:00 03/09/21 09:26 Tamsulosin 0.4 Mg Capsule PO 0.4 mg DAILY [facility] Administration - Lab Result Fish Bone Diagrams: 03/09/21 05:27 03/09/21 05:27 - Additional Planning My Orders: My Active Orders 03/09/21 07:44 Diabetic Education [RC] ONCE 03/09/21 07:50 Miscellaenous Nursing Order [RC] QSHIFT 03/09/21 09:14 Out of bed 3+ hours today [RC] TID 03/09/21 14:06 Admit [Admit \ Transfer \ Status] [RC] .ONCE Subjective - Subjective Patient Reports: Feeling Better Objective Vital Signs: Vital Signs - 24 hr 03/08/21 03/08/21 03/08/21 15:17 15:38 17:27 Temperature 36.3 C L Heart Rate 87 86 90 Heart Rate [ Activity] Heart Rate [ Brachial] Heart Rate [ Sitting] Respiratory 16 15 18 Rate Blood Pressure 137/88 H 139/86 H 134/62 H Blood Pressure [Activity] Blood Pressure [Right Brachial artery] Blood Pressure [Sitting] O2 Saturation 96 97 93 03/08/21 03/08/21 03/08/21 19:00 19:15 21:20 Temperature 36.3 C L Heart Rate 93 Heart Rate [ Activity] Heart Rate [ 73 Brachial] Heart Rate [ Sitting] Respiratory 15 18 Rate Blood Pressure 135/73 H 157/64 H Blood Pressure [Activity] Blood Pressure 157/64 H [Right Brachial artery] Blood Pressure [Sitting] O2 Saturation 92 95 03/09/21 03/09/21 03/09/21 00:33 05:35 07:26 Temperature 36.9 C 36.6 C 36.6 C Heart Rate Heart Rate [ Activity] Heart Rate [ 72 78 71 Brachial] Heart Rate [ Sitting] Respiratory 17 16 18 Rate Blood Pressure Blood Pressure [Activity] Blood Pressure 136/52 H 136/76 H 146/60 H [Right Brachial artery] Blood Pressure [Sitting] O2 Saturation 95 94 95 0603/09/21 03/09/21 09:27 11:11 11:26 Temperature 36.6 C Heart Rate Heart Rate [ 75 Activity] Heart Rate [ 73 Brachial] Heart Rate [ 69 Sitting] Respiratory 18 Rate Blood Pressure 114/59 L Blood Pressure 136/61 H [Activity] Blood Pressure 131/81 H [Right Brachial artery] Blood Pressure 129/75 [Sitting] O2 Saturation 97 03/09/21 11:30 Temperature Heart Rate Heart Rate [ 75 Activity] Heart Rate [ Brachial] Heart Rate [ 69 Sitting] Respiratory Rate Blood Pressure Blood Pressure 136/61 H [Activity] Blood Pressure [Right Brachial artery] Blood Pressure 129/75 [Sitting] O2 Saturation Oxygen O2 Source Room air I&O (Last 24 Hrs): Intake and Output Totals x24h 03/07/21 03/08/21 03/09/21 23:59 23:59 23:59 Intake Total 1362 3423.333 Output Total 1200 1300 Balance 162 2123.333 General: Alert, Cooperative, No acute distress HEENT: Atraumatic Neck: Supple Lymphatic: no adenopathy Neuro: Alert, Non Focal Cardiovascular: Regular rate, Normal S1, Normal S2 Respiratory: Chest non-tender, No respiratory distress, Breath sounds nml Abdomen: Normal bowel sounds, Soft Extremities: Normal pulses - Results Results: Laboratory Results WBC 9.2 x10^3/uL (4.8-10.8) 03/09/21 05:27 RBC 3.84 10^6/uL (4.70-6.10) L 03/09/21 05:27 Hgb 11.9 g/dL (14.0-18.0) L 03/09/21 05:27 Hct 36.3 % (42.0-52.0) L 03/09/21 05:27 MCV 94.5 fL (80.0-94.0) H 03/09/21 05:27 MCH 31.0 pg (27.0-31.0) 03/09/21 05:27 MCHC 32.8 g/dL (32.0-36.0) 03/09/21 05:27 RDW 13.4 % (12.0-15.0) 03/09/21 05:27 Plt Count 93 10^3/uL (130-450) L 03/09/21 05:27 MPV 10.4 fL (7.4-11.4) 03/09/21 05:27 Neut # (Auto) 7.0 10^3/uL (1.5-6.6) H 03/09/21 05:27 Lymph # (Auto) 1.2 10^3/uL (1.5-3.5) L 03/09/21 05:27 [place] # (Auto) 0.7 10^3/uL (0.0-1.0) 03/09/21 05:27 Eos # (Auto) 0.1 10^3/uL (0.0-0.7) 03/09/21 05:27 Baso # (Auto) 0.0 10^3/uL (0.0-0.1) 03/09/21 05:27 Absolute Nucleated RBC 0.00 x10^3/uL 03/09/21 05:27 Nucleated RBC % 0.0 /100WBC 03/09/21 05:27 PT 14.5 secs (9.9-12.6) H 03/08/21 16:28 INR 1.3 (0.8-1.2) H 03/08/21 16:28 Sodium 139 mmol/L (135-145) 03/09/21 05:27 Potassium 3.9 mmol/L (3.5-5.0) 03/09/21 05:27 Chloride 105 mmol/L (101-111) 03/09/21 05:27 Carbon Dioxide 25 mmol/L (21-32) 03/09/21 05:27 Anion Gap 9.0 (6-13) 03/09/21 05:27 BUN 38 mg/dL (6-20) H 03/09/21 05:27 Creatinine 0.9 mg/dL (0.6-1.2) 03/09/21 05:27 Estimated GFR (MDRD) 80 (>89) L 03/09/21 05:27 Glucose 154 mg/dL (70-100) H 03/09/21 05:27 POC Whole Bld Glucose 158 mg/dL (70 - 100) H 03/09/21 10:56 Estimat Average Glucose 134 mg/dL (70-100) H 03/09/21 05:27 Hemoglobin A1c % 6.3 % (4.27-6.07) H 03/09/21 05:27 Lactic Acid 1.2 mmol/L (0.5-2.2) 03/08/21 16:28 Calcium 8.3 mg/dL (8.5-10.3) L 03/09/21 05:27 Magnesium 2.4 mg/dL (1.7-2.8) 03/08/21 15:50 Total Bilirubin 1.2 mg/dL (0.2-1.0) H 03/08/21 15:50 AST 15 IU/L (10-42) 03/08/21 15:50 ALT 22 IU/L (10-60) 03/08/21 15:50 Alkaline Phosphatase 77 IU/L (42-121) 03/08/21 15:50 Troponin I High Sens 27.9 ng/L (2.3-19.7) H* 03/08/21 15:50 Total Protein 6.8 g/dL (6.7-8.2) 03/08/21 15:50 Albumin 3.4 g/dL (3.2-5.5) 03/08/21 15:50 Globulin 3.4 g/dL (2.1-4.2) 03/08/21 15:50 Albumin/Globulin Ratio 1.0 (1.0-2.2) 03/08/21 15:50 Lipase 42 U/L (22-51) 03/08/21 15:50 Urine Color YELLOW 03/08/21 16:10 Urine Clarity CLEAR (CLEAR) 03/08/21 16:10 Urine pH 5.5 PH (5.0-7.5) 03/08/21 16:10 Ur Specific [place] 1.015 (1.002-1.030) 03/08/21 16:10 Urine Protein NEGATIVE mg/dL (NEGATIVE) 03/08/21 16:10 Urine Glucose (UA) NEGATIVE mg/dL (NEGATIVE) 03/08/21 16:10 Urine Ketones NEGATIVE mg/dL (NEGATIVE) 03/08/21 16:10 Urine Occult Blood LARGE (NEGATIVE) H 03/08/21 16:10 Urine Nitrite NEGATIVE (NEGATIVE) 03/08/21 16:10 Urine Bilirubin NEGATIVE (NEGATIVE) 03/08/21 16:10 Urine Urobilinogen 0.2 (NORMAL) E.U./dL (NORMAL) 03/08/21 16:10 Ur Leukocyte Esterase NEGATIVE (NEGATIVE) 03/08/21 16:10 Urine RBC 11-25 /HPF (0-5) H 03/08/21 16:10 Urine WBC 0-3 /HPF (0-3) 03/08/21 16:10 Ur Squamous Epith Cells FEW Squamous (<= Few) 03/08/21 16:10 Urine Bacteria Rare /HPF (None Seen) 03/08/21 16:10 Urine Casts 0-2 Hyaline Casts /LPF 03/08/21 16:10 Urine Mucus Few Strands 03/08/21 16:10 Ur Microscopic Review INDICATED 03/08/21 16:10 Urine Culture Comments NOT INDICATED 03/08/21 16:10 Nasal Adenovirus (PCR) NOT DETECTED 03/08/21 18:22 Nasal B. parapertussis DNA (PCR) NOT DETECTED 03/08/21 18:22 Nasal Coronavir 229E PCR NOT DETECTED 03/08/21 18:22 Nasal Coronavir HKU1 PCR NOT DETECTED 03/08/21 18:22 Nasal Coronavir NL63 PCR NOT DETECTED 03/08/21 18:22 Nasal Coronavir OC43 PCR NOT DETECTED 03/08/21 18:22 Nasal Enterovir/Rhinovir PCR NOT DETECTED 03/08/21 18:22 Nasal Influenza B PCR NOT DETECTED 03/08/21 18:22 Nasal Influenza A PCR NOT DETECTED 03/08/21 18:22 Nasal Parainfluen 1 PCR NOT DETECTED 03/08/21 18:22 Nasal Parainfluen 2 PCR NOT DETECTED 03/08/21 18:22 Nasal Parainfluen 3 PCR NOT DETECTED 03/08/21 18:22 Nasal Parainfluen 4 PCR NOT DETECTED 03/08/21 18:22 Nasal RSV (PCR) NOT DETECTED 03/08/21 18:22 Nasal B.pertussis DNA PCR NOT DETECTED 03/08/21 18:22 Nasal C.pneumoniae (PCR) NOT DETECTED 03/08/21 18:22 [place] Human Metapneumo PCR NOT DETECTED 03/08/21 18:22 Nasal M.pneumoniae (PCR) NOT DETECTED 03/08/21 18:22 Nasal SARS-CoV-2 (PCR) NOT DETECTED 03/08/21 18:22 - Procedures Procedures: Procedures EXTRACTION OF LOWER TOOTH, SINGLE, EXTERNAL APPROACH (01/05/21) IMMOBILIZATION OF FACE USING WIRE (01/05/21) REPOSITION LEFT MANDIBLE WITH INT FIX, OPEN APPROACH (01/05/21) REPOSITION RIGHT MANDIBLE WITH INT FIX, OPEN APPROACH (01/05/21) ABX Reporting Has patient been on IV antibiotics over the past 48 hours?: No Current Medications - Current Medications Current Medications: Active Medications Acetaminophen (Acetaminophen 325 Mg Tablet) 650 mg PO Q4H PRN PRN Reason: PAIN Docusate Sodium (Docusate Sodium 250 Mg Capsule) 250 - 500 mg PO DAILY [facility] Last Admin: 03/09/21 09:25 Dose: 500 mg Documented by: Escitalopram Oxalate (Escitalopram 10 Mg Tablet) 10 mg PO DAILY [facility] Last Admin: 03/09/21 09:26 Dose: 10 mg Documented by: Finasteride (Finasteride 5 Mg Tablet) 5 mg PO DAILY [facility] Last Admin: 03/09/21 09:25 Dose: 5 mg Documented by: Hydrocortisone (Hydrocortisone 1% Cream 28 Gm Tube) 1 applic TOP QID [facility] Last Admin: 03/09/21 12:16 Dose: 1 applic Documented by: Sodium Chloride (Normal Saline 0.9%) 1,000 mls @ 100 mls/hr IV .Q10H [facility] Stop: 03/09/21 14:59 Last Infusion: 03/09/21 13:48 Dose: Infused Documented by: Insulin Aspart (Insulin Aspart 300 Unit/3 Ml Pen) 1 - 5 unit SUBQ 0800,1200,1700,2100 [facility]; Protocol Last Admin: 03/09/21 12:12 Dose: 1 unit Documented by: Metoprolol Tartrate (Metoprolol Tartrate 50 Mg Tablet) 50 mg PO BID [facility] Last Admin: 03/09/21 09:27 Dose: 50 mg Documented by: Multivitamins (Multivitamin Tablet) 1 tab PO DAILY [facility] Last Admin: 03/09/21 09:27 Dose: 1 tab Documented by: Polyethylene Glycol (Polyethylene Glycol 3350 17 Gm Packet) 17 gm PO DAILY [facility] Last Admin: 03/09/21 09:27 Dose: 17 gm Documented by: Senna (Senna 8.6 Mg Tablet) 17.2 mg PO BID PRN PRN Reason: Constipation Last Admin: 03/09/21 09:25 Dose: 17.2 mg Documented by: Sodium Chloride (Sodium Chloride Flush 0.9% 10 Ml Syringe) 10 ml IVP PRN PRN PRN Reason: NEEDED PER PROVIDER ORDERS Sodium Chloride (Sodium Chloride Flush 0.9% 10 Ml Syringe) 10 ml IVP 0100,0900,1700 [facility] Last Admin: 03/09/21 09:27 Dose: Not Given Documented by: Tamsulosin HCl (Tamsulosin 0.4 Mg Capsule) 0.4 mg PO DAILY [facility] Last Admin: 03/09/21 09:26 Dose: 0.4 mg Documented by: Escitalopram Oxalate [Lexapro] 10 mg PO DAILY 01/05/21 Metoprolol Tartrate [Lopressor] 50 mg PO BID 01/05/21 Tamsulosin [Flomax] 0.4 mg PO DAILY PM 01/05/21 Acetaminophen [Tylenol] 650 mg PO Q4H PRN 03/08/21 Diclofenac Sodium [Voltaren Arthritis Pain] 1 applic TP PRN PRN 03/08/21 Finasteride [Proscar] 5 mg PO DAILY 03/08/21 Hydrocortisone 1% Cream [Hydrocortisone] 1 applic TOP QID 03/08/21 Multivit with Iron,Minerals [Complete Senior] 1 each PO DAILY 03/08/21 Senna [Senokot] 2 tab PO BID PRN 03/08/21
[2021-03-10] MEDS: SODIUM CHLORIDE FLUSH 0.9% 10 ML SYRINGE IVP SCH ×2 (05:07→08:40)
[2021-03-10] MEDS: SODIUM CHLORIDE 0.9% 1,000 ML IV SCH (05:07)
[2021-03-10 05:10] LABS: BASOPHILS % (AUTO) 0.1 %; EOSINOPHILS # (AUTO) 0.1 10^3/uL (0.0-0.7); EOSINOPHILS % (AUTO) 1.8 %; HCT - HEMATOCRIT 35.5 % (42.0-52.0); HGB - HEMOGLOBIN 11.3 g/dL (14.0-18.0); LYMPHOCYTES # (AUTO) 1.5 10^3/uL (1.5-3.5); LYMPHOCYTES % (AUTO) 18.1 %; MEAN CORPUSCULAR HEMOGLOBIN 30.5 pg (27.0-31.0); MEAN CORPUSCULAR HGB CONC 31.8 g/dL (32.0-36.0); MEAN CORPUSCULAR VOLUME 95.7 fL (80.0-94.0); MEAN PLATELET VOLUME 10.6 fL (7.4-11.4); MONOCYTES # (AUTO) 0.5 10^3/uL (0.0-1.0); MONOCYTES % (AUTO) 6.8 %; NEUTROPHILS # (AUTO) 5.8 10^3/uL (1.5-6.6); NEUTROPHILS % (AUTO) 71.9 %; PLT - PLATELET COUNT 103 10^3/uL (130-450); RED BLOOD COUNT 3.71 10^6/uL (4.70-6.10); RED CELL DISTRIBUTION WIDTH 13.3 % (12.0-15.0)
[2021-03-10 05:14] LABS: CALCIUM 8.3 mg/dL (8.5-10.3); CREATININE 0.6 mg/dL (0.6-1.2)
[2021-03-10] MEDS: INSULIN ASPART 300 UNIT/3 ML PEN SUBQ SCH (07:33)
[2021-03-10] MEDS: DOCUSATE SODIUM 250 MG CAPSULE PO SCH (07:34)
[2021-03-10] MEDS: ESCITALOPRAM 10 MG TABLET PO SCH (08:35)
[2021-03-10] MEDS: TAMSULOSIN 0.4 MG CAPSULE PO SCH (08:35)
[2021-03-10] MEDS: MULTIVITAMIN TABLET PO SCH (08:36)
[2021-03-10] MEDS: FINASTERIDE 5 MG TABLET PO SCH (08:36)
[2021-03-10] MEDS: polyethylene glycoL 3350 17 GM PACKET PO SCH (08:36)
[2021-03-10] MEDS: HYDROCORTISONE 1% CREAM 28 GM TUBE TOP SCH (08:37)
[2021-03-10] MEDS: METOPROLOL TARTRATE 50 MG TABLET PO SCH (08:37)
--- NOTE | 2021-03-10 08:50 | Discharge Plan ---
"Discharge Plan for SNF / [facility] - Discharge Plan And Transition Orders Problem Reviewed?: Yes Disposition: [address] [facility] DC/Xfer Condition: Stable Allergies and Adverse Reactions: Allergies Allergy/AdvReac Type Severity Reaction Status Date / Time No Known Drug Allergies Allergy Verified 03/08/21 15:28 Health Concerns: urinary retention/JADIEL, unsteady gait, pre-diabetes, MVP, subdural hemorrhage Plan of Treatment: pt has Capps now, pt may keep hydration, and followup with out-pt urologist. pt has recently diagnosis of subdural hemorrhage, and falls and unsteady gait. Pt may continue PT/OT training at [facility], followup with neurologist as out-pt. pt has A1C 6.3, pt may benefit from control of his glucose intake and director of intelligence consult as out-pt. pt has hx of MVP, pt may continue followup with his director appointment as out-pt. Care Goals: stabilization and improvement of his medical conditions Assessment: discussed the care plan with pt, answered pt's questions, he understood. - SNF / [facility] Transition Orders Admit to (Facility): [facility] Under the care of (Name): Medical provider of [facility] Discharge Diagnosis: JADIEL, acute urinary retention, unsteady gait, Acquired hydronephrosis due to obstruction of bladder, MVP, weakness, HTN, Subdural hemorrhage Medicare Certification Statement: I certify that Post Hospital intermediate care is medically necessary on a continuing basis for any of the conditions for which she/he is receiving care during hospitalization. Notify PCP of admission and forward orders to primary provider for signature. Weight on admission and: Daily Call PCP immediately if weight increases by: 2 kg Other Notification Orders: Call PCP immediately if patient develops dyspnea, chest pain/tightness or edema. House Bowel Program: Yes Additional Bowel Program Orders: If no BM after 2 days, nurse may give M.O.M. 30ml PO PRN and/or ducolax Supp 1 MA and/or JASPREET 250mg P.O., and/or senna 1-2 tabs PO. On day 3 nurse may give repeat above order until residents constipation is resolved. Annual Influenza Vaccine (between Jun 02 and December 30): Yes Two-step PPD per [facility] [phone] or approved exception documents: Yes Treatments & Other Orders: pt has Capps now, pt may keep hydration, and followup with out-pt urologist. pt has recently diagnosis of subdural hemorrhage, and falls and unsteady gait. Pt may continue PT/OT training at SNF, followup with neurologist as out-pt. pt has A1C 6.3, pt may benefit from control of his glucose intake and director of intelligence consult as out-pt. pt has hx of MVP, pt may continue followup with his director appointment as out-pt. Medication Orders: PLEASE REFER TO THE DISCHARGE MEDICATION LIST. Insulin Orders?: No - Diet Type: Geriatric Texture: Regular Liquids: Thin May have monthly special meal: Yes - Therapies | Activity Therapy: Evaluation | Treat if indicated: PT, OT Rehabilitation Potential: Maximize functional status Activity: Activity as Tolerated"
--- NOTE | 2021-03-10 09:03 | DISCHARGE SUMMARY ---
Discharge Summary Admit Date: 03/08/21 Discharge Date: 03/10/21 Discharging Provider: Bhupinder Herr Primary Care Provider: Jung Hernandez Condition at Discharge: Stable Discharge Disposition: 03 SNF DC/Xfer Discharge Facility Name: [facility] - DIAGNOSES Discharge Diagnoses with Status of Each Condition: (1) JADIEL (acute kidney injury) resolved. pt has normal arrange creatinine now. it was likely caused by acute urinary retention which caused Mild to moderate bilaterally hydronephrosis. Now patient had a Bosch. Patient may keep hydration at home (2) Acute urinary retention resolved. pt had bosch now. At the admission, pt had The enlarged bladder, and was relieved by placement of a Bosch which is draining clear yellow fluid which was over 1000ml. We discharge him with the Bosch and he may followup with urologist outpatient management. pt had Bosch care education before discharge. resume home meds Flomax and Proscar (3) unsteady gait PT/OT Evaluated and treated for patient, Recommended patient to be discharged to SNF. pt was d/c to [facility], followup with neurologist as out-pt (4) Acquired hydronephrosis due to obstruction of bladder resolve. pt had bosch now. pt needs urology outpatient management. resume home meds Flomax and Proscar (5) pre-diabetes today pt's A1C is 6.3, improved. diabetes education was ordered for pt. at this point, we will hold meds for pt at d/c since his lower A1C, followup with PCP to continue management. (6) MVP (mitral valve prolapse) stable, pt may continue followup with his Document Coordinator in [place] as out-pt setting. (7) Weakness Possibly this is from his new diagnosis of subdural hematoma, 2 recent hospitalizations, and physical deconditioning, and new uremia. physical therapy and OT evaluated and treat the pt, recommend to SNF. pt is d/c to [facility]. (8) HTN (hypertension) stable (9) Subdural hemorrhage stable, pt was recently Diagnosis with subdural Hemorrhage, And had procedure of craniotomy in . The patient had CT head imaging done in the ER today, because of the new complaint of weakness. The CT head showed bilateral chronic appearing subdural hygromas, bur holes and stable findings post-surgery, as per the ED provider. pt was d/c from about one week ago. pt denies headache, no focal neurological deficit. pt has no seizure. pt's speech is normal. pt denies vision or hearing change. pt is alert and oriented plus 4. Pt may continue followup with his neurologist as out-pt. - HPI History of Present Illness: refer from Dr. Ashley Maciel's HPI on 03/08/21 This is an 85-year-old white male with a history of hypertension, Mitral valve prolapes, BPH and constipation. In late December of this year he accidentally roolled out of bed, hitting his end table and fractured his face and jaw and needed admission here on the oral-maxillofacial surgery service of Dr. Quarles for surgical repair of his jaw. During that admission, a murmur was documented and an Echo was done that showed low-normal LVEF of 50% and mitral valve prolapse with moderate, eccentric mitral regurgitation. His serum glucose levels were elevated therefore an A1c was done that returned at 7.1. Patient was to have follow-up of newly diagnosed diabetes with his PCP. About 6 weeks later, in late January, he was "not feeling well" and came to the ER and was diagnosed with a subdural hematoma, presumably sustained in the January 2020 fall, and he was transferred from our ER to [facility] and needed surgery with bur holes and recovered. The patient presents to the ER today with complaints of weakness, fatigue, vague abdominal pain and inability to urinate and no bowel movement for 5 days. In the ER work-up showed that he was not impacted, creatinine was 2.4 (is usually 0.6) and CT imaging of the abdomen showed a very large prostate and hydronephrosis. Bladder scan was not accurate so a straight cath was done and he put out 1200+ cc of fluid therefore a Bosch was inserted. The patient is being placed in Ob servation status for continued management of JADIEL with fluids and relief of urinary obstruction with a Bosch. At the last admission, the patient voiced request to be a DNR. - HOSPITAL COURSE Hospital Course: Patient was admitted for acute urinary retention, JADIEL, unsteady gait. Patient was recently discharged to home from . Patient had a recently diagnosis of subdural hematoma, Craniotomy in . Patient had Bosch to resolve his acute urinary retention. Patient's JADIEL was resolved after hydration in the hospital. Patient had PT and OT evaluation and treatment, patient was recommended to be d/c to SNF. Patient was discharged to [facility]. please review discharge diagnosis for in detail hospital course. - ALLERGIES Allergies/Adverse Reactions: Allergies Allergy/AdvReac Type Severity Reaction Status Date / Time No Known Drug Allergies Allergy Verified 03/08/21 15:28 - MEDICATIONS Home Medications: Ambulatory Orders Medication Instructions Recorded Confirmed Escitalopram Oxalate [Lexapro] 10 mg PO DAILY 01/05/21 03/08/21 Metoprolol Tartrate [Lopressor] 50 mg PO BID 01/05/21 03/08/21 Tamsulosin [Flomax] 0.4 mg PO DAILY PM 01/05/21 03/08/21 Acetaminophen [Tylenol] 650 mg PO Q4H PRN 03/08/21 03/08/21 Diclofenac Sodium [Voltaren 1 applic TP PRN PRN 03/08/21 03/08/21 Arthritis Pain] Finasteride [Proscar] 5 mg PO DAILY 03/08/21 03/08/21 Hydrocortisone 1% Cream 1 applic TOP QID 03/08/21 03/08/21 [Hydrocortisone] Multivit with Iron,Minerals 1 each PO DAILY 03/08/21 03/08/21 [Complete Senior] Senna [Senokot] 2 tab PO BID PRN 03/08/21 03/08/21 - PHYSICAL EXAM AT DISCHARGE General Appearance: positive: No acute distress, Alert. negative: Lethargic Eyes Bilateral: positive: Normal inspection, PERRL, No lid inflammation ENT: positive: ENT inspection nml, No signs of dehydration. negative: Purulent nasal drainage Neck: positive: Nml inspection, Trachea midline. negative: Thyromegaly, Trac heal deviation Respiratory: positive: Chest non-tender, No respiratory distress, Breath sounds nml. negative: Wheezes, Rales Cardiovascular: positive: Regular rate & rhythm, No murmur. negative: Tachycardia, Bradycardia, Systolic murmur, Diastolic murmur Peripheral Pulses: positive: 2+ Abdomen: positive: Non-tender, Nml bowel sounds, No distention. negative: Tenderness Back: positive: Nml inspection Skin: positive: Color nml, Warm, Dry. negative: Cyanosis, Diaphoresis Extremities: positive: Non-tender, Nml appearance, No pedal edema. negative: Calf tenderness Neurologic/Psychiatric: positive: Oriented x3, Motor nml, Sensation nml, Mood/affect nml. negative: Weakness, Sensory loss, Facial droop, Slurred/abnml speech, Depressed mood/affect - LABS Result Diagrams: 03/10/21 04:35 03/10/21 04:35 - FOLLOW UP Follow Up: pt has Bosch now, pt may keep hydration, and followup with out-pt urologist. pt has recently diagnosis of subdural hemorrhage, and falls and unsteady gait. Pt may continue PT/OT training at [facility], followup with neurologist as out-pt. pt has A1C 6.3, pt may benefit from control of his glucose intake and wafer production lead worker consult as out-pt. pt has hx of MVP, pt may continue followup with his weigher packing as out-pt. - TIME SPENT Time Spent in Discharge (Minutes): 30
[2021-03-10 10:45] VITALS: BP 152/58
== END 2021-03-10 11:20 | DRG 683 ==
LOC: EDUNIT# → SUPCPDRO 14:58 → ED 14:58 → MS2 18:10 → OBSVTOIN 03-09 14:06
PROVIDERS: ADMIT Internal Medicine; ATTEND Nurse Practitioner Gerontology
DX: N17.9 Acute kidney failure, unspecified (principal); I34.0 Nonrheumatic mitral (valve) insufficiency; N13.1 Hydronephrosis with ureteral stricture, not elsewhere classified; R53.1 Weakness; R33.9 Retention of urine, unspecified; N40.1 Benign prostatic hyperplasia with lower urinary tract symptoms; G96.08 Other cranial cerebrospinal fluid leak; S02.91XS Unspecified fracture of skull, sequela; S06.5X9S Traumatic subdural hemorrhage with loss of consciousness of unspecified duration, sequela; W06.XXXS Fall from bed, sequela; Z20.822 Contact with and (suspected) exposure to COVID-19; N13.39 Other hydronephrosis; I05.0 Rheumatic mitral stenosis; I10 Essential (primary) hypertension; R26.0 Ataxic gait; I48.91 Unspecified atrial fibrillation; R73.03 Prediabetes; R32 Unspecified urinary incontinence; K59.00 Constipation, unspecified; Z79.899 Other long term (current) drug therapy; Z98.890 Other specified postprocedural states; Z86.718 Personal history of other venous thrombosis and embolism
CPT/HCPCS: 36415; 51702; 51798; 70450; 73120; 74176; 80048; 80053; 81001; 83036; 83605; 83690; 83735; 84484; 85025; 85610; 87631; 93005; 97162; 97166; 97530; 99284; 99285; A9270; G0378; 0202U; 81003; 87086

== ENCOUNTER 2021-05-12 20:32 | Emergency (ER) | payer MEDICARE, OTHER ==
[2021-05-12 21:07] LABS: BASOPHILS % (AUTO) 0.3 %; EOSINOPHILS % (AUTO) 0.2 %; HCT - HEMATOCRIT 37.8 % (42.0-52.0); HGB - HEMOGLOBIN 12.4 g/dL (14.0-18.0); LYMPHOCYTES # (AUTO) 0.8 10^3/uL (1.5-3.5); LYMPHOCYTES % (AUTO) 13.4 %; MEAN CORPUSCULAR HEMOGLOBIN 30.5 pg (27.0-31.0); MEAN CORPUSCULAR HGB CONC 32.8 g/dL (32.0-36.0); MEAN CORPUSCULAR VOLUME 93.1 fL (80.0-94.0); MONOCYTES # (AUTO) 0.5 10^3/uL (0.0-1.0); MONOCYTES % (AUTO) 8.6 %; NEUTROPHILS # (AUTO) 4.7 10^3/uL (1.5-6.6); NEUTROPHILS % (AUTO) 77.2 %; PLT - PLATELET COUNT 122 10^3/uL (130-450); RED BLOOD COUNT 4.06 10^6/uL (4.70-6.10); RED CELL DISTRIBUTION WIDTH 14.5 % (12.0-15.0)
[2021-05-12] MEDS: SODIUM CHLORIDE 0.9% 1,000 ML IV STA (21:07)
[2021-05-12 21:15] LABS: INR 1.3 (0.8-1.2); PT - PROTHROMBIN TIME 13.8 secs (9.9-12.6)
[2021-05-12 21:17] LABS: BILIRUBIN,URINE NEGATIVE (NEGATIVE); GLUCOSE, URINE (UA) NEGATIVE (NEGATIVE); KETONES,URINE (UA) NEGATIVE (NEGATIVE); LEUKOCYTE ESTERASE, URINE LARGE (NEGATIVE); NITRITE,URINE POSITIVE (NEGATIVE); OCCULT BLOOD,URINE MODERATE (NEGATIVE); PROTEIN,URINE 100 mg/dL (NEGATIVE); UROBILINOGEN,URINE 1 (NORMAL) E.U./dL (NORMAL)
[2021-05-12 21:18] LABS: ALBUMIN 3.6 g/dL (3.2-5.5); ALBUMIN/GLOBULIN RATIO 1.2 (1.0-2.2); BILIRUBIN,TOTAL 1.1 mg/dL (0.2-1.0); CALCIUM 8.4 mg/dL (8.5-10.3); POTASSIUM 3.5 mmol/L (3.5-5.0); TOTAL PROTEIN 6.7 g/dL (6.7-8.2)
[2021-05-12 21:22] LABS: BACTERIA,URINE Many /HPF (None Seen); CLARITY,URINE CLOUDY (CLEAR); RBC,URINE TNTC /HPF (0-5); SQUAMOUS EPITHELIAL CELL,UR RARE Squamous (<= Few); WBC,URINE >25 /HPF (0-3)
[2021-05-12] MEDS ORDERED: IOPAMIDOL-300 100 ML VIAL ONE (21:28)
--- NOTE | 2021-05-12 21:34 | ED Physician Documentation ---
History of Present Illness - Stated complaint Stated Complaint: STROKE SYMPTOMS, HX OF STROKES - Chief complaint Chief Complaint: Neuro - History obtained from History obtained from: Patient - Additonal information Additional information: Patient comes emergency department for chief complaint of "I might of had a stroke". Patient states that around 1700 today, he was eating dinner when he suddenly found a food sliding off of his plate. He had been holding the plate in his hands and states he is not really sure what happened. He does not remember feeling focally weak, but just that you seem to not be able to hold the plate well. He states that when he got up to walk after that, his gait felt "off" but once again, he did not notice any specific, focal deficits. Patient states the symptoms improved over the course of the evening and that he is feeling fairly good now. He states he always has some gait deficit, secondary to previous strokes., And that what he experienced tonight felt like a little bit of a worsening of his normal symptoms. Patient denies fevers or chills. No cough, dysuria, nausea, or vomiting. No diarrhea. No other complaints at this time. Review of Systems Ten Systems: 10 systems reviewed and negative Constitutional: reports: Reviewed and negative Eyes: reports: Reviewed and negative Ears: reports: Reviewed and negative Nose: reports: Reviewed and negative Throat: reports: Reviewed and negative Cardiac: reports: Reviewed and negative Respiratory: reports: Reviewed and negative GI: reports: Reviewed and negative : reports: Reviewed and negative Skin: reports: Reviewed and negative Musculoskeletal: reports: Reviewed and negative Neurologic: reports: Generalized weakness Psychiatric: reports: Reviewed and negative Endocrine: reports: Reviewed and negative Immunocompromised: reports: Reviewed and negative PD PAST MEDICAL HISTORY - Past Medical History Cardiovascular: Hypertension, Deep vein thrombosis, Atrial fibrillation, Murmur Respiratory: None Neuro: Head injury Endocrine/Autoimmune: Type 2 diabetes GI: None : Benign prostate hypertrophy, Incontinence Psych: None Musculoskeletal: None Derm: None - Past Surgical History Past Surgical History: Yes Ortho: Knee replacement Neuro: Craniotomy, Other HEENT: Cataracts - Present Medications Home Medications: Ambulatory Orders Medication Instructions Recorded Confirmed Escitalopram Oxalate [Lexapro] 10 mg PO DAILY 01/05/21 05/12/21 Metoprolol Tartrate [Lopressor] 50 mg PO BID 01/05/21 05/12/21 Tamsulosin [Flomax] 0.4 mg PO DAILY PM 01/05/21 05/12/21 Acetaminophen [Tylenol] 650 mg PO Q4H PRN 03/08/21 05/12/21 Diclofenac Sodium [Voltaren 1 applic TP PRN PRN 03/08/21 05/12/21 Arthritis Pain] Finasteride [Proscar] 5 mg PO DAILY 03/08/21 05/12/21 Hydrocortisone 1% Cream 1 applic TOP QID 03/08/21 05/12/21 [Hydrocortisone] Multivit with Iron,Minerals 1 each PO DAILY 03/08/21 05/12/21 [Complete Senior] Senna [Senokot] 2 tab PO BID PRN 03/08/21 05/12/21 Aspirin Chewable [St Bubba 81 mg PO DAILY #30 tablet 05/13/21 Aspirin] - Allergies Allergies/Adverse Reactions: Allergies Allergy/AdvReac Type Severity Reaction Status Date / Time No Known Drug Allergies Allergy Verified 03/08/21 15:28 - Social History Does the pt smoke?: No Smoking Status: Former smoker Does the pt drink ETOH?: Yes Does the pt have substance abuse?: No - Immunizations Immunizations are current?: Yes PD ED PE NORMAL - Vitals Vital signs reviewed: Yes - General General: Alert and oriented X 3, No acute distress, Well developed/nourished - HEENT HEENT: Atraumatic, PERRL, EOMI, Moist mucous membranes - Neck Neck: Supple, no meningeal sign - Cardiac Cardiac: RRR, No murmur, Strong equal pulses - Respiratory Respiratory: No respiratory distress, Clear bilaterally - Abdomen Abdomen: Soft, Non tender, Non distended - Derm Derm: Normal color, Warm and dry, No rash - Extremities Extremities: No deformity, No edema, No calf tenderness / cord - Neuro Neuro: Alert and oriented X 3, retail and promotions coordinator 2-12 intact, No sensory deficit, Normal speech, Other (Patient has right facial droop which she states is chronic.) - Psych Psych: Normal mood, Normal affect Results - Vitals Vitals: Vital Signs - 24 hr 05/12/21 05/12/21 05/12/21 20:35 21:49 23:00 Temperature 36.7 C Heart Rate 56 L 86 81 Respiratory 14 16 15 Rate Blood Pressure 150/64 H 124/73 O2 Saturation 95 96 94 05/13/21 05/13/21 00:39 00:55 Temperature 36.6 C 37.1 C Heart Rate 91 89 Respiratory 19 17 Rate Blood Pressure 125/77 134/81 H O2 Saturation 97 97 Oxygen O2 Source Room air - EKG (time done) 2048 Rate: Rate (enter#) (100) Rhythm: NSR [place]: Normal Intervals: Normal VT QRS: Normal Ischemia: Normal ST segments, Non specific changes Other comments: Other comments (PVCs) Compare to prior EKG: Old EKG unavailable Computer interpretation: Agree with computer - Labs Labs: Laboratory Tests 05/12/21 05/12/21 05/12/21 21:00 21:00 21:00 WBC 6.0 RBC 4.06 L Hgb 12.4 L Hct 37.8 L MCV 93.1 MCH 30.5 MCHC 32.8 RDW 14.5 Plt Count 122 L MPV 10.0 Neut # (Auto) 4.7 Lymph # (Auto) 0.8 L [place] # (Auto) 0.5 Eos # (Auto) 0.0 Baso # (Auto) 0.0 Absolute Nucleated RBC 0.00 Nucleated RBC % 0.0 PT 13.8 H INR 1.3 H Sodium 132 L Potassium 3.5 Chloride 98 L Carbon Dioxide 25 Anion Gap 9.0 BUN 18 Creatinine 1.0 Estimated GFR (MDRD) 71 L Glucose 239 H Calcium 8.4 L Total Bilirubin 1.1 H AST 16 ALT 12 Alkaline Phosphatase 74 Total Protein 6.7 Albumin 3.6 Globulin 3.1 Albumin/Globulin Ratio 1.2 Lipase 28 Urine Color Urine Clarity Urine pH Ur Specific [place] Urine Protein Urine Glucose (UA) Urine Ketones Urine Occult Blood Urine Nitrite Urine Bilirubin Urine Urobilinogen Ur Leukocyte Esterase Urine RBC Urine WBC Ur Squamous Epith Cells Urine Bacteria Ur Microscopic Review Urine Culture Comments 05/12/21 21:11 WBC RBC Hgb Hct MCV MCH MCHC RDW Plt Count MPV Neut # (Auto) Lymph # (Auto) [place] # (Auto) Eos # (Auto) Baso # (Auto) Absolute Nucleated RBC Nucleated RBC % PT INR Sodium Potassium Chloride Carbon Dioxide Anion Gap BUN Creatinine Estimated GFR (MDRD) Glucose Calcium Total Bilirubin AST ALT Alkaline Phosphatase Total Protein Albumin Globulin Albumin/Globulin Ratio Lipase Urine Color YELLOW Urine Clarity CLOUDY Urine pH 6.0 Ur Specific [place] 1.025 Urine Protein 100 H Urine Glucose (UA) NEGATIVE Urine Ketones NEGATIVE Urine Occult Blood MODERATE H Urine Nitrite POSITIVE H Urine Bilirubin NEGATIVE Urine Urobilinogen 1 (NORMAL) Ur Leukocyte Esterase LARGE H Urine RBC TNTC H Urine WBC >25 H Ur Squamous Epith Cells RARE Squamous Urine Bacteria Many H Ur Microscopic Review INDICATED Urine Culture Comments INDICATED - Rads (name of study) ct/cta head Radiology: Final report received, EMP read indepedently, See rad report (nad) cta neck Radiology: Final report received, EMP read indepedently, See rad report (neg) PD MEDICAL DECISION MAKING - ED course Complexity details: reviewed old records, reviewed results, re-evaluated patient, considered differential, d/w patient ED course: Patient was worked up with labs, urinalysis, and CT/CTA of the head and neck. He was given a liter of 0.9 normal saline. The labs were unremarkable and CT angiograms were negative. Patient was found to be feeling completely well. I discussed with patient and his that it would be a good idea for the patient to be on a baby aspirin at least, given his stroke history. I have given him a dose here and written him a prescription for the same. His symptoms are most consistent with a very brief TIA which is now resolved. Patient has fairly recently had a stroke work-up and I do not feel this needs to be repeated at this time. Patient is stable, asymptomatic, and can be discharged home. We discussed the usual indications for return. Departure - Departure Disposition: 01 Home, Self Care Clinical Impression: TIA (transient ischemic attack) Condition: Stable Instructions: ED Transient Ischemic Attack Prescriptions: Aspirin Chewable [St Bubba Aspirin] 81 mg PO DAILY #30 tablet Discharge Date/Time: 05/13/21 00:56
[2021-05-12] MEDS: IOPAMIDOL-300 100 ML VIAL IVP ONE (21:51)
[2021-05-13] MEDS: ASPIRIN CHEW 81 MG TABLET PO STA (00:35)
[2021-05-13 00:56] VITALS: BP 134/81
--- NOTE | 2021-05-13 11:15 | CT Report ---
PROCEDURE: ANGIO HEAD W/WO INDICATIONS: L sided facial droop CONTRAST: IV CONTRAST: Isovue 300 ml: 80 PO CONTRAST: *NO PO CONTRAST TECHNIQUE: Precontrast 4.5 mm thick angled axial sections acquired from the foramen magnum to the vertex. Afte r the administration of intravenous contrast, 1 mm thick sections acquired through the [place] of [place] is. Postcontrast 4.5 mm thick sections then re-acquired from the foramen magnum to the vertex. 3-di mensional eyngwvl-zqdodkzza-rjqgwdtgmp (MIP) and/or volume rendering reformats were acquired of the c entral intracranial vasculature. For radiation dose reduction, the following was used: automated ex posure control, adjustment of mA and/or kV according to patient size. COMPARISON: CT head 02/27/2021, 03/08/2021, CTA neck 05/12/2021 FINDINGS: Image quality: Excellent. Anterior circulation: Intracranial internal carotid arteries are normal in size and flow. The flow within the paired anterior cerebral arteries is normal and symmetric. The flow within the middle cer ebral arteries is normal and symmetric. The anterior communicating artery is seen. No aneurysms are seen. Posterior circulation: Basilar artery is within normal limits. There is moderate calcification of the V4 segment bilaterally with less than 50% stenosis. Flow within the posterior cerebral arteries is n ormal and symmetric. No aneurysms are seen. The ventricular system and cortical sulci demonstrate atrophy, consistent for patient's stated age. There are areas of hypodensity in the periventricular and subcortical white matter. There has been ma rked interval improvement with very minimal residual appearance of right frontal extra-axial CSF flui d collection and apparent resolution of previous pneumocephalus. No mass lesion or midline shift. Br ainstem is unremarkable. Globes are symmetrical. Sinuses demonstrate mucus retention cyst versus polyp in the right maxillary sinus. Right frontal craniotomy changes are noted.. IMPRESSION: 1. No acute intracranial process. Expected interval involutional changes of previous right extra-axi al fluid collection. 2. Mild atrophy and chronic microvascular ischemic changes. 3. No areas of hemodynamically significant stenosis, vascular occlusion or aneurysmal dilation withi n the anterior or posterior circulation. The above findings are concordant with preliminary report. Reviewed by: Shannan Matias MD on 05/13/2021 11:14 AM PDT Approved by: Shannan Matias MD on 05/13/2021 11:14 AM PDT Station ID: [id number]
--- NOTE | 2021-05-13 11:42 | CT Report ---
PROCEDURE: ANGIO NECK W INDICATIONS: L sided facial droop, L neck pain CONTRAST: IV CONTRAST: Isovue 300 ml: 80 PO CONTRAST: *NO PO CONTRAST TECHNIQUE: After the administration of intravenous contrast, 1.5 mm axial sections acquired from the aortic arch to the [place] of [place]. Coronal 3-D maximum intensity projection (MIP) and/or volume rendering ref ormats were then performed. For radiation dose reduction, the following was used: automated exposur e control, adjustment of mA and/or kV according to patient size. COMPARISON: None. FINDINGS: Image quality: Excellent. Expected evolving changes of previous right extra-axial fluid collection involution are noted. The or igins of the left and right common, internal and external carotid arteries demonstrate no areas of he modynamically significant stenosis, vascular occlusion or aneurysmal dilation. Origin of the left tami tebral artery and right vertebral artery demonstrate no areas of hemodynamically significant stenosis , vascular occlusion or aneurysmal dilation. Aortic arch demonstrates conventional anatomy. Limited, visualized portions of the subclavian vasculature are unremarkable. Pulmonary arteries enlarged measu ring 4.2 cm most consistent with pulmonary artery hypertension. IMPRESSION: 1. Expected involutional changes of previous right extra-axial fluid collection. Please see CT a head report of 05/12/2021 for further details. 2. Enlarged pulmonary artery most suggestive of pulmonary artery hypertension. The above findings are concordant with preliminary report. The estimate of stenosis included in the report of the imaging study was calculated using the NASCET method Reviewed by: Shannan Matias MD on 05/13/2021 11:40 AM PDT Approved by: Shannan Matias MD on 05/13/2021 11:40 AM PDT Station ID: [id number]
== END 2021-05-13 00:56 | disposition home or self-care (01) ==
LOC: ED 20:32
DX: G45.9 Transient cerebral ischemic attack, unspecified (principal); Z86.718 Personal history of other venous thrombosis and embolism; I10 Essential (primary) hypertension; I48.91 Unspecified atrial fibrillation; E11.9 Type 2 diabetes mellitus without complications; Z87.891 Personal history of nicotine dependence
CPT/HCPCS: 36415; 70496; 70498; 80053; 81001; 83690; 85025; 85610; 87086; 93005; 99284; A9270; Q9967; 81003; 87077; 87181

== ENCOUNTER 2021-09-09 14:35 | Outpatient (CLI) | payer MEDICARE, OTHER | END 2021-09-09 14:36 | disposition short-term general hospital (02) | LOC: EMS 14:35 | DX: R07.9 Chest pain, unspecified (principal); R61 Generalized hyperhidrosis; R23.1 Pallor; R44.8 Other symptoms and signs involving general sensations and perceptions; I47.2 Ventricular tachycardia | CPT/HCPCS: A0425; A0427 ==

== ENCOUNTER 2023-02-27 14:16 | Outpatient (CLI) | payer MEDICARE, OTHER | END 2023-02-27 14:17 | disposition short-term general hospital (02) | LOC: EMS 14:16 | DX: I49.9 Cardiac arrhythmia, unspecified (principal); Z95.810 Presence of automatic (implantable) cardiac defibrillator | CPT/HCPCS: A0425; A0429 ==

== ENCOUNTER 2023-04-05 19:04 | Emergency (ER) | payer MEDICARE, OTHER ==
[2023-04-05 19:18] VITALS: BP 115/67
--- NOTE | 2023-04-05 19:31 | ED Physician Documentation ---
History of Present Illness - Stated complaint Stated Complaint: MALE - Chief complaint Chief Complaint: General - History obtained from History obtained from: Patient - Additonal information Additional information: 87-year-old gentleman with chronic indwelling Capps noted that the Capps stopped draining today and he has been leaking around the catheter tip. He has no other complaints. PD PAST MEDICAL HISTORY - Past Medical History Past Medical History: Yes Cardiovascular: Hypertension, Deep vein thrombosis, Atrial fibrillation, Murmur Respiratory: None Neuro: Head injury Endocrine/Autoimmune: Type 2 diabetes GI: None : Benign prostate hypertrophy, Incontinence Psych: None Musculoskeletal: None Derm: None - Past Surgical History Past Surgical History: Yes Ortho: Knee replacement Neuro: Craniotomy, Other HEENT: Cataracts - Present Medications Home Medications: Ambulatory Orders Medication Instructions Recorded Confirmed Escitalopram Oxalate [Lexapro] 10 mg PO DAILY 01/05/21 05/12/21 Metoprolol Tartrate [Lopressor] 50 mg PO BID 01/05/21 05/12/21 Tamsulosin [Flomax] 0.4 mg PO DAILY PM 01/05/21 05/12/21 Acetaminophen [Tylenol] 650 mg PO Q4H PRN 03/08/21 05/12/21 Diclofenac Sodium [Voltaren 1 applic TP PRN PRN 03/08/21 05/12/21 Arthritis Pain] Finasteride [Proscar] 5 mg PO DAILY 03/08/21 05/12/21 Hydrocortisone 1% Cream 1 applic TOP QID 03/08/21 05/12/21 [Hydrocortisone] Multivit with Iron,Minerals 1 each PO DAILY 03/08/21 05/12/21 [Complete Senior] Senna [Senokot] 2 tab PO BID PRN 03/08/21 05/12/21 Aspirin Chewable [St Bubba 81 mg PO DAILY #30 tablet 05/13/21 Aspirin] - Allergies Allergies/Adverse Reactions: Allergies Allergy/AdvReac Type Severity Reaction Status Date / Time No Known Drug Allergies Allergy Verified 04/05/23 19:12 - Social History Does the pt smoke?: No Smoking Status: Never smoker Does the pt drink ETOH?: Yes Does the pt have substance abuse?: No - Immunizations Immunizations are current?: Yes - POLST Patient has POLST: No PD ED PE NORMAL - Vitals Vital signs reviewed: Yes - General General: Alert and oriented X 3, No acute distress - Abdomen Abdomen: Normal bowel sounds, Soft, Non tender - Male Male : Other (Capps catheter in place, minimal urine in the bag.) - Neuro Neuro: Alert and oriented X 3, Normal speech Results - Vitals Vitals: Vital Signs - 24 hr 04/05/23 19:06 Temperature 36.2 C L Heart Rate 60 Respiratory 19 Rate Blood Pressure 115/67 O2 Saturation 94 Oxygen O2 Source Room air PD Medical Decision Making - ED course ED course: 87-year-old gentleman with clogged Capps, asked the nurse to replace. No sympto ms of UTI. Departure - Departure Disposition: 01 Home, Self Care Clinical Impression: Encounter for Capps catheter replacement Condition: Good Record reviewed to determine appropriate education?: Yes Instructions: ED Catheter Care Capps Discharge Date/Time: 04/05/23 20:05
== END 2023-04-05 20:05 | disposition home or self-care (01) ==
LOC: ED 19:04
DX: T83.091A Other mechanical complication of indwelling urethral catheter, initial encounter (principal)
CPT/HCPCS: 51702; 99282; 99283

== ENCOUNTER 2023-08-07 16:33 | Emergency (ER) | payer MEDICARE, OTHER ==
--- NOTE | 2023-08-07 17:31 | ED Physician Documentation ---
PD HPI HEAD INJURY - Stated complaint Stated Complaint: GLF/HEAD INJ - Chief complaint Chief Complaint: Trauma Hd/Nk - History obtained from History obtained from: Patient - Additional information Additional information: Patient is an 87-year-old male who is on Plavix presenting for evaluation of a ground-level fall with a head injury. Per patient his he has poor balance and stumbled over his shoes at home and fell forward. He did hit his head. There is no LOC. He reports pain to the left shoulder. He denies pain elsewhere. Review of Systems Constitutional: denies: Fever Cardiac: denies: Chest pain / pressure Respiratory: denies: Dyspnea GI: denies: Abdominal Pain Neurologic: reports: Head injury. denies: Syncope PD PAST MEDICAL HISTORY - Past Medical History Cardiovascular: Hypertension, Deep vein thrombosis, Atrial fibrillation, Murmur Respiratory: None Neuro: Head injury Endocrine/Autoimmune: Type 2 diabetes GI: None : Benign prostate hypertrophy, Incontinence Psych: None Musculoskeletal: None Derm: None - Past Surgical History Past Surgical History: Yes Ortho: Knee replacement Neuro: Craniotomy, Other HEENT: Cataracts - Present Medications Home Medications: Ambulatory Orders Medication Instructions Recorded Confirmed Escitalopram Oxalate [Lexapro] 10 mg PO DAILY 01/05/21 05/12/21 Metoprolol Tartrate [Lopressor] 50 mg PO BID 01/05/21 05/12/21 Tamsulosin [Flomax] 0.4 mg PO DAILY PM 01/05/21 05/12/21 Acetaminophen [Tylenol] 650 mg PO Q4H PRN 03/08/21 05/12/21 Diclofenac Sodium [Voltaren 1 applic TP PRN PRN 03/08/21 05/12/21 Arthritis Pain] Finasteride [Proscar] 5 mg PO DAILY 03/08/21 05/12/21 Hydrocortisone 1% Cream 1 applic TOP QID 03/08/21 05/12/21 [Hydrocortisone] Multivit with Iron,Minerals 1 each PO DAILY 03/08/21 05/12/21 [Complete Senior] Senna [Senokot] 2 tab PO BID PRN 03/08/21 05/12/21 Aspirin Chewable [St Bubba 81 mg PO DAILY #30 tablet 05/13/21 Aspirin] Oxycodone HCl/Acetaminophen 1 each PO Q6H PRN #10 tablet 11/06/23 [Percocet 5-325 mg Tablet] - Allergies Allergies/Adverse Reactions: Allergies Allergy/AdvReac Type Severity Reaction Status Date / Time No Known Drug Allergies Allergy Verified 08/07/23 17:09 - Social History Does the pt smoke?: No Smoking Status: Never smoker Does the pt drink ETOH?: Yes Does the pt have substance abuse?: No - Immunizations Immunizations are current?: Yes - POLST Patient has POLST: No PD ED PE NORMAL - General General: Alert and oriented X 3, No acute distress, Well developed/nourished - HEENT HEENT: Moist mucous membranes, Pharynx benign, Other (Contusion to left forehead) - Neck Neck: Supple, no meningeal sign, No bony TTP - Cardiac Cardiac: RRR, Strong equal pulses - Respiratory Respiratory: No respiratory distress, Clear bilaterally - Abdomen Abdomen: Soft, Non tender, Non distended - Extremities Extremities: Other (Tenderness to left shoulder and left upper arm, normal range of motion at left elbow) - Neuro Neuro: Alert and oriented X 3, No motor deficit, No sensory deficit, Normal speech Eye Opening: Spontaneous Motor: Obeys Commands Verbal: Oriented GCS Score: 15 Results - Vitals Vitals: Vital Signs - 24 hr 08/07/23 08/07/23 08/07/23 17:03 17:08 18:05 Temperature 36.1 C L 36.5 C 36.5 C Heart Rate 59 L 60 60 Respiratory 16 16 15 Rate Blood Pressure 112/72 112/72 152/68 H O2 Saturation 98 98 95 08/07/23 08/07/23 08/07/23 19:08 19:22 20:05 Temperature 36.8 C Heart Rate 60 60 Respiratory 15 24 15 Rate Blood Pressure 115/56 L 138/65 H O2 Saturation 98 98 Oxygen O2 Source Room air Procedures - Reduction Body part reduced: Left, Shoulder Fracture or dislocation: Dislocation Shoulder reduction technique: Traction - counter tract Reduction aftercare: NV intact, Xray confirms reduction, Alignment improved, Sling, Patient tolerated well - Procedural sedation Sedation prep: Informed consent, Time out completed, Last meal (> 8 hrs), PE performed, ASA 3 - severe disease, IV O2 monitor, ET CO2 monitor, RT present Sedation Medications: propofol (50mg then 30mg = total of 80mg) Mallampati classification: III Patient status during sedation: Responds to tactile, Vitals remained stable, Maintained airway, Recovered uneventfully Sedation recovery: Recovered uneventfully, Back to baseline Time in sedation (Minutes): 10 PD Medical Decision Making - ED course Complexity details: reviewed results, re-evaluated patient, d/w patient, d/w family ED course: Pt with baseline gait instability with trip/fall at home with head injury on plavix. CT head and cspine without acute findings. Pt also has L shoulder pain. Found to have dislocation. Pt underwent procedural sedation and successful reduction of shoulder dislocation. Recovered without issue and back to baseline. Pt aware of need for follow up with ortho and PCP as well as concerning symptoms to return for. present throughout ED encounter. Departure - Departure Disposition: Home, Self Care Clinical Impression: Dislocation of left shoulder joint, Head injury Condition: Stable Instructions: ED Dislocation Shoulder Redu, ED Head Injury Closed Follow-Up: Vu Campos MD [Provider Admit Priv/Credential] - Prescriptions: Oxycodone HCl/Acetaminophen [Percocet 5-325 mg Tablet] 1 each PO Q6H PRN #10 tablet PRN Reason: pain Comments: You were found to have a dislocation of your left shoulder Which has been put back into place. We have given you a sling which I would recommend keeping on and avoiding raising your arm as you do run the risk of a redislocated your shoulder. I would recommend close follow-up with orthopedic surgery and have listed the name of 1 locally on nora. The head CT and C-spine show no injuries from your fall. You do need to take extra caution with Ambulating to prevent any further falls.You may need further assistance at home such as waiting for family members to be nearby to help you get around. I have sent your prescription to [facility] in [place]. Forms: PCP List Discharge Date/Time: 08/07/23 20:08
[2023-08-07] MEDS ORDERED: PROPOFOL 200 MG/20 ML VIAL IVP STA (18:05)
--- NOTE | 2023-08-07 18:14 | XRAY Report ---
PROCEDURE: Shoulder 2 View LT INDICATIONS: fall on plavix TECHNIQUE: 2 views of the shoulder were acquired. COMPARISON: None. FINDINGS: Bones: Anterior, inferior dislocation of the left shoulder. Soft tissues: No suspicious soft tissue calcifications. The visualized lungs are within normal limi ts. IMPRESSION: Anterior, inferior dislocation of the left shoulder. Reviewed by: Felix Zapien on 08/07/2023 6:13 PM [facility] Approved by: Felix Zapien on 08/07/2023 6:13 PM [facility] Station ID: [id number]
--- NOTE | 2023-08-07 18:40 | CT Report ---
PROCEDURE: CERVICAL SPINE WO INDICATIONS: fall on plavix TECHNIQUE: Noncontrast 3 mm thick sections acquired from the skull base to the T4 level. Sagittal and coronal r eformats were then constructed. For radiation dose reduction, the following was used: automated exp osure control, adjustment of mA and/or kV according to patient size. COMPARISON: None. FINDINGS: Image quality: Excellent. Bones: No fractures or dislocations. Visualized superior ribs are intact. Moderate to severe, mult ilevel degenerative disc disease and facet arthrosis. No severe spinal canal narrowing. Soft tissues: Prevertebral soft tissues are normal in thickness. No paravertebral hematomas. No ap ical pneumothoraces. IMPRESSION: No acute, displaced fracture or traumatic subluxation. Reviewed by: Felix Zapien on 08/07/2023 6:39 PM [facility] Approved by: Felix Zapien on 08/07/2023 6:39 PM [facility] Station ID: [id number]
--- NOTE | 2023-08-07 18:41 | CT Report ---
PROCEDURE: HEAD WO INDICATIONS: fall on plavix TECHNIQUE: Noncontrast 4.5 mm thick angled axial sections acquired from the foramen magnum to the vertex. For r adiation dose reduction, the following was used: automated exposure control, adjustment of mA and/or kV according to patient size. COMPARISON: None. FINDINGS: Image quality: Excellent. CSF spaces: Basal cisterns are patent. No extra-axial fluid collections. Ventricles are normal in size and shape. Brain: No midline shift. No intracranial masses or hemorrhage. [place]-white matter interface is norm al. Skull and face: Calvarium and visualized facial bones are intact, without suspicious lesions. Sinuses: Visualized sinuses and mastoids are clear. IMPRESSION: No acute intracranial pathology. Reviewed by: Felix Zapien on 08/07/2023 6:40 PM [facility] Approved by: Felix Zapien on 08/07/2023 6:40 PM [facility] Station ID: [id number]
[2023-08-07] MEDS ORDERED: SODIUM CHLORIDE 0.9% 500 ML IV STA (18:47)
[2023-08-07] MEDS ORDERED: oxyCODONE 5 MG TABLET PO STA (19:01)
[2023-08-07] MEDS ORDERED: oxyCODONE/ACET 5/325 Prepack 4 PO STA (19:06)
[2023-08-07 19:15] VITALS: O2SAT 98
--- NOTE | 2023-08-07 19:20 | XRAY Report ---
PROCEDURE: Shoulder 2 View LT INDICATIONS: post reduction TECHNIQUE: 2 views of the shoulder were acquired. COMPARISON: None. FINDINGS: Bones: No fractures or dislocations. No suspicious bony lesions. Visualized ribs appear intact. Soft tissues: No suspicious soft tissue calcifications. The visualized lungs are within normal limi ts. IMPRESSION: Interval reduction with anatomic alignment. No displaced fracture. Reviewed by: Felix Zapien on 08/07/2023 7:18 PM [facility] Approved by: Felix Zapien on 08/07/2023 7:18 PM [facility] Station ID: [id number]
[2023-08-07 20:17] VITALS: BP 138/65
== END 2023-08-07 20:08 | disposition home or self-care (01) ==
LOC: ED 16:33
DX: S09.90XA Unspecified injury of head, initial encounter (principal); S43.005A Unspecified dislocation of left shoulder joint, initial encounter; W01.0XXA Fall on same level from slipping, tripping and stumbling without subsequent striking against object, initial encounter; R26.81 Unsteadiness on feet; E11.9 Type 2 diabetes mellitus without complications; I10 Essential (primary) hypertension
CPT/HCPCS: 23650; 70450; 72125; 73030; 99152; 99283; 99285; A9270

== ENCOUNTER 2023-09-03 01:02 | Outpatient (CLI) | payer MEDICARE, OTHER | END 2023-09-03 01:03 | disposition critical access hospital (66) | LOC: EMS 01:02 | DX: S01.81XA Laceration without foreign body of other part of head, initial encounter (principal); W01.0XXA Fall on same level from slipping, tripping and stumbling without subsequent striking against object, initial encounter; Y92.008 Other place in unspecified non-institutional (private) residence as the place of occurrence of the external cause; R26.81 Unsteadiness on feet | CPT/HCPCS: A0425; A0429 ==

== ENCOUNTER 2023-09-03 01:39 | Emergency (ER) | payer MEDICARE, OTHER ==
[2023-09-03] MEDS ORDERED: LIDOCAINE-EPINEPH-TETRACAINE 3 ML SYRINGE TOP STA (01:46)
[2023-09-03] MEDS ORDERED: TETANUS/DIPHTHERIA/PERTUSSIS 0.5 ML SYRINGE IM ONE (01:46)
--- NOTE | 2023-09-03 03:16 | ED Physician Documentation ---
PD HPI HEAD INJURY - Stated complaint Stated Complaint: GLF/FACE LAC/ON THINNER - Chief complaint Chief Complaint: Laceration - History obtained from History obtained from: Patient - Additional information Additional information: Patient is an 88-year-old male with a history of A-fib, on Plavix presenting for evaluation after a fall at home and head injury. Patient states that he was walking with his cane in the hallway of his home when he stumbled and fell. He does not believe he had any LOC. He does have a history of frequent falls and was actually seen here just about a month ago after a fall at home after tripping on his shoes and at that time had a shoulder dislocation that required reduction. Patient is unsure of his last tetanus. Denies any pain at this time. Patient arrives in a c-collar due to his age.Per nurse on review of his medication it appears that patient recently to started Ambien. Patient lives with his at home. Review of Systems Constitutional: denies: Fever Cardiac: denies: Chest pain / pressure Respiratory: denies: Dyspnea GI: denies: Abdominal Pain Neurologic: reports: Head injury PD PAST MEDICAL HISTORY - Past Medical History Past Medical History: Yes Cardiovascular: Hypertension, Deep vein thrombosis, Atrial fibrillation, Murmur Respiratory: None Neuro: Head injury Endocrine/Autoimmune: Type 2 diabetes GI: None : Benign prostate hypertrophy, Incontinence Psych: None Musculoskeletal: None Derm: None - Past Surgical History Past Surgical History: Yes Ortho: Knee replacement Neuro: Craniotomy, Other HEENT: Cataracts - Present Medications Home Medications: Ambulatory Orders Medication Instructions Recorded Confirmed Finasteride [Proscar] 5 mg PO DAILY 03/08/21 09/03/23 Amiodarone [Pacerone] 200 mg PO BID 09/03/23 09/03/23 Buspirone HCl 10 mg PO BID 09/03/23 09/03/23 Clopidogrel [Plavix] 75 mg PO DAILY 09/03/23 09/03/23 Metoprolol Succinate 100 mg PO BID 09/03/23 09/03/23 Zolpidem [Ambien] 5 mg PO HS 09/03/23 09/03/23 - Allergies Allergies/Adverse Reactions: Allergies Allergy/AdvReac Type Severity Reaction Status Date / Time No Known Drug Allergies Allergy Verified 09/03/23 01:59 - Social History Does the pt smoke?: No Smoking Status: Never smoker Does the pt drink ETOH?: Yes Does the pt have substance abuse?: No - Immunizations Immunizations are current?: Yes - POLST Patient has POLST: No PD ED PE NORMAL - General General: Alert and oriented X 3, No acute distress, Well developed/nourished - HEENT HEENT: PERRL, EOMI, Moist mucous membranes, Other (0.5 cm To inner upper lip on mucosal surface, 2-1/2 cm laceration between the eyebrows, abrasion to nose; No septal hematoma) - Neck Neck: No bony TTP - Cardiac Cardiac: RRR, Strong equal pulses - Respiratory Respiratory: No respiratory distress, Clear bilaterally - Abdomen Abdomen: Soft, Non tender, Non distended - Extremities Extremities: No deformity, No tenderness to palpate, Normal ROM s pain - Neuro Neuro: Alert and oriented X 3, No motor deficit, No sensory deficit, Normal s peech Eye Opening: Spontaneous Motor: Obeys Commands Verbal: Oriented GCS Score: 15 Results - Vitals Vitals: Vital Signs - 24 hr 09/03/23 09/03/23 09/03/23 01:40 02:00 02:40 Temperature 36.2 C L Heart Rate 87 60 60 Respiratory 16 16 14 Rate Blood Pressure 141/68 H 128/69 144/69 H O2 Saturation 97 93 94 09/03/23 09/03/23 09/03/23 03:03 04:19 05:12 Temperature Heart Rate 60 60 73 Respiratory 13 14 17 Rate Blood Pressure 135/70 H 131/67 H 145/96 H O2 Saturation 95 94 94 09/03/23 09/03/23 09/03/23 05:34 06:00 06:30 Temperature Heart Rate 60 60 60 Respiratory 12 15 16 Rate Blood Pressure 140/68 H 148/69 H 142/60 H O2 Saturation 96 95 96 09/03/23 09/03/23 09/03/23 07:00 07:36 09:47 Temperature Heart Rate 60 97 60 Respiratory 12 24 14 Rate Blood Pressure 138/65 H 112/68 150/71 H O2 Saturation 95 98 100 Oxygen O2 Source Room air Procedures - Laceration (location) Forehead Length in cm: 2.5 Wound type: Linear, Clean Anesthesia: LET Wound preparation: Hibiclens, Irrigated copiously NS Skin layer closure: Size #-0 - enter number (4), Sutures - enter # (6) Other: Patient tolerated well, No complications, Neurovascular intact, Tetanus booster given PD Medical Decision Making - ED course Complexity details: reviewed results, re-evaluated patient, d/w patient ED course: Patient is an 88-year-old male presenting for evaluation of a head injury after a fall at home. He is on Plavix. He does have a history of frequent falls. Normal neuro exam. Placed into a c-collar by EMS. Does have a laceration to his forehead. CT head, cervical spine, maxillofacial were obtained and reviewed and without signs of intracranial hemorrhage or fracture. C-spine is also cleared clinically. Laceration to forehead was sutured and tetanus was updated. Patient was recently started on Ambien which could be a contributing factor. Patient here is at his baseline. No indication for admission at this time. The family has contacted to pickle processor the patient when they are able to in the morning. Departure - Departure Disposition: 01 Home, Self Care Clinical Impression: Head injury, Facial laceration, Laceration of oral cavity, Fall at home Instructions: ED Head Injury Closed, ED Laceration Facial Sutr Tape Follow-Up: ROBERTO TAO MD [Primary Care Provider] - Comments: You were evaluated after a fall at home. There could be multiple reasons for the fall including some new medications you are on such as Ambien which is a sleep aid but can also make you drowsy. You did sustain a laceration to your forehead that was closed with 6 stitches. These should be removed in approximately 5 [address] scans of your head, cervical spine and face do not show any broken bones.There is also no signs of bleeding inside your brain. I would recommend close follow-up with your primary care provider to discuss your current medication regiment. Please take extra caution when ambulating, particularly at night.You were given a tetanus booster today. Forms: PCP List Discharge Date/Time: 09/03/23 10:51
--- NOTE | 2023-09-03 09:40 | CT Report ---
PROCEDURE: HEAD WO INDICATIONS: head injury on plavix TECHNIQUE: Noncontrast 4.5 mm thick angled axial sections acquired from the foramen magnum to the vertex. For r adiation dose reduction, the following was used: automated exposure control, adjustment of mA and/or kV according to patient size. COMPARISON: None. FINDINGS: Image quality: Excellent. CSF spaces: Basal cisterns are patent. No extra-axial fluid collections. Ventricles are normal in size and shape. Brain: No midline shift. No intracranial masses or hemorrhage. [place]-white matter interface is norm al. Leukoaraiosis, commonly caused by chronic small vessel ischemic disease. Age-related volume loss . Skull and face: Calvarium and visualized facial bones are intact, without suspicious lesions. Anter ior scalp contusion. Sinuses: Visualized sinuses and mastoids are clear. IMPRESSION: No acute intracranial pathology. Findings are concordant with preliminary interpretation provided by [facility]. Reviewed by: Felix Zapien on 09/03/2023 8:39 AM [facility] Approved by: Felix Zapien on 09/03/2023 8:39 AM [facility] Station ID: [id number]
--- NOTE | 2023-09-03 09:42 | CT Report ---
PROCEDURE: CERVICAL SPINE WO INDICATIONS: head injury on plavix TECHNIQUE: Noncontrast 3 mm thick sections acquired from the skull base to the T4 level. Sagittal and coronal r eformats were then constructed. For radiation dose reduction, the following was used: automated exp osure control, adjustment of mA and/or kV according to patient size. COMPARISON: None. FINDINGS: Image quality: Excellent. Bones: No fractures or dislocations. Visualized superior ribs are intact. Grade 1 anterolisthesis o f T1 on T2 secondary to facet arthrosis. Diffuse degenerative disc disease and facet arthrosis. Soft tissues: Prevertebral soft tissues are normal in thickness. No paravertebral hematomas. No ap ical pneumothoraces. IMPRESSION: No acute, displaced fracture or traumatic subluxation. Findings are concordant with preliminary interpretation provided by [facility]. Reviewed by: Felix Zapien on 09/03/2023 8:41 AM [facility] Approved by: Felix Zapien on 09/03/2023 8:41 AM [facility] Station ID: [id number]
[2023-09-03 09:50] VITALS: BP 150/71; O2SAT 100
--- NOTE | 2023-09-03 09:59 | CT Report ---
PROCEDURE: MAXILLOFACIAL WO INDICATIONS: facial lacerations/on plavix TECHNIQUE: Noncontrast 1.5 mm thick axial images acquired from the mandible through the frontal sinuses, with co shahzad and sagittal reformatting. For radiation dose reduction, the following was used: automated ex posure control, adjustment of mA and/or kV according to patient size. COMPARISON: None. FINDINGS: Image quality: Excellent. Bones and teeth: Orbital lacey are intact. Sinus lacey show no fracture or deformity. Nasal bones and septum are intact. Visualized portions of the mandible demonstrate no fractures or subluxation. Zygomatic arches are intact. Pterygoid plates are intact. Visualized portions of the skull base an d auditory canals are intact. Screw plate fixation of the mandible. Sinuses: Paranasal sinuses are aerated, without fluid levels, mucosal thickening, or mucoceles. Mas toid air cells are aerated. Soft tissues: No edema, masses, or fluid collections. No enlarged lymph nodes. No soft tissue lace rations or debris. Vascular: Visualized vascular structures appear normal in the absence of contrast. Bony vascular fo ramina and canals are intact. IMPRESSION: No displaced fracture. Findings are concordant with preliminary interpretation provided by [facility]. Reviewed by: Felix Zapien on 09/03/2023 8:58 AM [facility] Approved by: Felix Zapien on 09/03/2023 8:58 AM [facility] Station ID: [id number]
== END 2023-09-03 10:51 | disposition home or self-care (01) ==
LOC: EDUNIT# → ED 01:39
DX: S01.81XA Laceration without foreign body of other part of head, initial encounter (principal); W01.0XXA Fall on same level from slipping, tripping and stumbling without subsequent striking against object, initial encounter; Y92.009 Unspecified place in unspecified non-institutional (private) residence as the place of occurrence of the external cause; I10 Essential (primary) hypertension; E11.9 Type 2 diabetes mellitus without complications; I48.91 Unspecified atrial fibrillation; Z79.01 Long term (current) use of anticoagulants; Z91.81 History of falling; Z23 Encounter for immunization
CPT/HCPCS: 12011; 36415; 90471; 99284

== ENCOUNTER 2023-09-23 18:58 | Outpatient (CLI) | payer MEDICARE, OTHER | END 2023-09-23 18:59 | disposition EMS.NT | LOC: EMS 18:58 | DX: R53.1 Weakness (principal) ==

== ENCOUNTER 2023-10-18 10:08 | Outpatient (CLI) | payer MEDICARE, OTHER | END 2023-10-18 10:09 | disposition E | LOC: EMS 10:08 ==